=== PATIENT | female | born 1990 | race Caucasian/White ===

== ENCOUNTER 2017-02-11 04:20 | Observation (INO) | payer OTHER ==
[~2017-02-11] VITALS: Ht 177.8 cm; Wt 68.0 kg
[~2017-02-11 04:20] MED LIST: Z.0.NO CURRENT MEDS
[2017-02-11] MEDS ORDERED: DILA8TAB4 IV (05:27)
[2017-02-11 06:17] LABS: AUTOMATED NEUTROPHIL # 5.6 TH/MM3 (1.8-7.7); BASOPHIL % 0.2 % (0.0-2.0); EOSINOPHIL % 0.4 % (0.0-4.0); HEMO FLAGS DIFF FINAL; LYMPH % 24.5 % (9.0-44.0); MEAN CELL VOLUME 79.4 FL (80.0-100.0); MEAN CORPUSCULAR HEMOGLOBIN 27.6 PG (27.0-34.0); MEAN CORPUSCULAR HGB CONC 34.8 % (32.0-36.0); MONO % 7.4 % (0.0-8.0); NEUT % 67.5 % (16.0-70.0); PLATELET COUNT 231 TH/MM3 (150-450); RED BLOOD COUNT 3.91 MIL/MM3 (4.00-5.30); RED CELL DISTRIBUTION WIDTH 12.7 % (11.6-17.2); WHITE BLOOD COUNT 8.3 TH/MM3 (4.0-11.0)
[2017-02-11 06:39] LABS: ANION GAP 10 MEQ/L (5-15); AST (GOT) 54 U/L (15-37); BICARBONATE 23.1 MEQ/L (21.0-32.0); BLOOD UREA NITROGEN 8 MG/DL (7-18); CHLORIDE 102 MEQ/L (98-107); GLOMERULAR FILTRATION RATE 113 ML/MIN (>89); SODIUM (NA) 135 MEQ/L (136-145)
[2017-02-11 06:47] LABS: ALKALINE PHOSPHATASE 166 U/L (45-117); ALT (GPT) 92 U/L (10-53); TOTAL BILIRUBIN ADULT 0.3 MG/DL (0.2-1.0)
[2017-02-11 06:53] LABS: BACTERIA, URINE RARE /hpf; BLOOD, URINE NEG (NEG); COMMENT (UR) CULT NOT INDICATED; CULTURE IF INDICATED CULT NOT INDICATED; GLUCOSE,URINE NEG (NEG); HYALINE CAST, URINE 1 /lpf (RARE); KETONE, URINE NEG (NEG); MUCUS URINE MANY /lpf (OCC); NITRITE,URINE NEG (NEG); SQUAMOUS EPITHELIAL CELL URINE 2 /hpf (0-5); URINE COLOR DARK-YELLOW (YELLW/STRAW)
[2017-02-11 06:57] LABS: AMPHETAMINE, URINE NEG (NEG); BARBITURATES, URINE NEG (NEG)
[2017-02-11 06:58] LABS: RUBELLA IGG ANTIBODY 34.4 IU/mL (10.0-500.0); RUBELLA STATUS IMMUNE (IMMUNE)
[2017-02-11 07:00] LABS: COCAINE, URINE POS (NEG)
[2017-02-11] MEDS: LACTATED RINGER'S 1000 ML INJ 1,000 ML IV SCH (08:48)
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
[2017-02-11 09:41] LABS: RAPID PLASMA REAGIN SCREEN NON-REACTIVE (NON-REACTVE)
[2017-02-11 10:59] LABS: MRSA PCR NEGATIVE (NEGATIVE); STAPH AUREUS PCR NEGATIVE (NEGATIVE)
[2017-02-11] MEDS ORDERED: SODIUM CHLORIDE 0.9% FLUSH 10 ML FLUSH IV FLUSH PRN (13:00)
--- NOTE | 2017-02-11 16:37 | EC ---
Study Study Date:02/11/2017 STUDY CONCLUSIONS SUMMARY LEFT VENTRICLE: The cavity size was normal. Wall thickness was normal. Systolic function was normal. The estimated ejection fraction was in the range of 55% to 60%. Wall motion was normal; there were no regional wall motion abnormalities. If LV function is below 40, please consider prescribing an ACEI or ARB or document rationale for non-use. PROCEDURE DATA STUDY STATUS: Elective. Procedure: Transthoracic echocardiography. Image quality was good. Scanning was performed from the parasternal, apical, and subcostal acoustic windows. Study completion: The patient tolerated the procedure well. Transthoracic echocardiography. M-mode, complete 2D, complete spectral Doppler, and color Doppler. Patient status: Inpatient. CARDIAC ANATOMY LEFT VENTRICLE: The cavity size was normal. Wall thickness was normal. Systolic function was normal. The estimated ejection fraction was in the range of 55% to 60%. Wall motion was normal; there were no regional wall motion abnormalities. AORTIC VALVE: Trileaflet; normal thickness leaflets. Doppler: Transvalvular velocity was within the normal range. There was no stenosis. No regurgitation. AORTA: Aortic root: The aortic root was normal in size. MITRAL VALVE: Structurally normal valve. Doppler: Transvalvular velocity was within the normal range. There was no evidence for stenosis. Trace regurgitation. Peak gradient: 4mm Hg (D). LEFT ATRIUM: The atrium was normal in size. RIGHT VENTRICLE: The cavity size was normal. Wall thickness was normal. PULMONIC VALVE: Doppler: Transvalvular velocity was within the normal range. There was no evidence for stenosis. No regurgitation. TRICUSPID VALVE: Structurally normal valve. Doppler: Transvalvular velocity was within the normal range. No regurgitation. PULMONARY ARTERY: The main pulmonary artery was normal-sized. Systolic pressure was within the normal range. RIGHT ATRIUM: The atrium was normal in size. PERICARDIUM: There was no pericardial effusion. SYSTEMIC VEINS: Inferior vena cava: The vessel was normal in size. BASIC MEASUREMENTS ADULT Normal Left ventricle LV internal dimension, ED, chordal level, 46.4 mm 43-52 PLAX LV internal dimension, ES, chordal level, 34.3 mm 23-38 PLAX Fractional shortening, chordal level, PLAX *26 % >29 LV posterior wall thickness, ED 6.96 mm IVS/LVPW ratio, ED *1.31 <1.3 Ventricular septum Septal thickness, ED 9.11 mm Aortic valve Leaflet separation 24 mm 15-26 Left atrium Anterior-posterior dimension 37 mm Right ventricle RV internal dimension, ED, PLAX 19.5 mm 19-38 BASIC MEASUREMENTS ADULT Normal Aortic valve Leaflet separation 24 mm 15-26 Aorta Root diameter, ED 33 mm 20-37 DOPPLER MEASUREMENTS ADULT Normal Main pulmonary artery Pressure, S 23 mm Hg =30 Mitral valve Peak E-wave velocity 97.7 cm/s Peak A-wave velocity 70.6 cm/s Peak gradient, D 4 mm Hg Peak E/A ratio 1.4 Tricuspid valve Regurgitant peak velocity 166 cm/s Peak RV-RA gradient, S 11 mm Hg Maximal regurgitant velocity 166 cm/s Systemic veins Estimated CVP 5 mm Hg Right ventricle RV pressure, S 23 mm Hg <30 LEGEND: Mean values are shown as u=mean value. Asterisk (*) spangler values outside specified normal range. Prepared and signed by Mejia Rodríguez [id number]
[2017-02-11] MEDS ORDERED: GABAPENTIN 300 MG CAP PO ONE (20:00)
[2017-02-11] MEDS: SODIUM CHLORIDE 0.9% FLUSH 10 ML FLUSH IV FLUSH SCH (21:00)
[2017-02-12] MEDS: SODIUM CHLORIDE 0.9% FLUSH 10 ML FLUSH IV FLUSH SCH ×2 (08:43→21:00)
--- NOTE | 2017-02-12 08:57 | PD.CONS ---
HPI Chief Complaint 29 week IUP with abdominal pain and contractions active opioid addiction in withdrawal hep C preliminary HIV not negative hx MRSA abcess on arm in no care Date Seen: Feb 11, 2017 Travel History International Travel<30 Days: No Contact w/Intl Traveler<30Days: No Known Affected Area: No History of Present Illness HPI 26 yo swf G1 with EDC 04/30/17 by 8 week nisreen (which has beeen her only visit) arrived yesterday to [facility] with cramping, pain and symptoms of withdrawal. Has severe malaise, fatigue. Not eating well. GFM, no leaking, bleeding, discharge No fever, chills, does have nausea and chronic lower abdominal pain. COWS about 12-14. Recent drug of choice 8 mg dilaudid split and taken IV. Last was 3-4am on the . Complicated drug history detailed by Dr. Jefferson. States doesn't share needles. Has tricked. Use has been as high as 4-5 D's daily (40mg + $500 daily habit). Known hep C. Preliminary rapid HIV of concern--aware it is not negative but this is not yet processed by [facility] ) Initially undecided about subutex vs residential detox. Today would like to try subutex today. Echo reassuring. Initial MRSA swab negative. Allergies-Medications (Allergen,Severity, Reaction): Coded Allergies: Penicillin (Verified Allergy, Severe, 03/20/12) Home Meds Reported Medications Hydromorphone (Dilaudid)8 Mg Tab8 Mg IV TID PRN (Pain Management) Ref 0 02/11/17 Miscellaneous (No Current Meds) Misc 06/12/11 Review of Systems HENT: Headaches, Lightheadedness Gastrointestinal: Nausea, Abdominal Pain, Loss of Appetite Musculoskeletal: Weakness Psychiatric: Anxiety, Depression, Substance Abuse Physical Exam Narrative GENERAL: Well-nourished, well-developed patient. SKIN: Warm and dry. track spangler No active phleblitis or abcesses HEAD: Normocephalic and atraumatic. EYES: No scleral icterus. No injection or drainage. ENT: No nasal drainage noted. Mucous membranes pink. Airway patent. NECK: Supple, trachea midline. No JVD. CARDIOVASCULAR: Regular rate and rhythm without murmurs, gallops, or rubs. RESPIRATORY: Breath sounds equal bilaterally. No accessory muscle use. BREASTS: Bilateral exam showed no masses , no retractions, no nipple discharge. ABDOMEN/GI: Abdomen soft, non-tender, bowel sounds present, no rebound, no guarding Gravid to [-] weeks size Fundal Height: [-] GENITOURINARY: External Genitalia: intact and normal in appearance fundus equals dates FHT's: strip category 1 EXTREMITIES: No cyanosis or edema. BACK: Nontender without obvious deformity. No CVA tenderness. NEUROLOGICAL: Awake and alert. Motor and sensory grossly within normal limits. Five out of 5 muscle strength in all muscle groups. Normal speech. Data Data Orders Rhogam Only (02/11/17 09:08) ^ Rhogam (02/11/17 09:08) ^ Other Nursing Orders (02/11/17 12:58) Heart RT.Q4H (02/11/17 12:58) ^ Monitor (02/11/17 12:58) Sodium Chloride 0.9% Flush (Ns Flush) (02/11/17 21:00) Sodium Chloride 0.9% Flush (Ns Flush) (02/11/17 13:00) Case Management Consult (02/11/17 ) Hydroxyzine Pamoate (Vistaril) (02/11/17 13:00) Clonidine (Catapres) (02/11/17 13:00) Consult Infectious Disease (02/11/17 ) (Hub Use Only)Inp Phy Cons/Ref (02/11/17 ) Echo 2d Comp W/Dopp(Routine) (02/11/17 ) Hepatitis C Rna Genotype (02/12/17 06:00) Hepatitis C Rna Quantitative (02/12/17 06:00) Gabapentin (Neurontin) (02/11/17 20:00) Labs Laboratory Tests Test 02/11/17 11:20 Blood Bank Comment MDM Narrative Course / MDM course in house per residents I will start subutex will follow on outpatient -- needs consents and contracts need family buy in Need ID consult before discharge will likely need antivirals started Leticia Maldonado MD Feb 12, 2017 08:57
[2017-02-12] MEDS ORDERED: BUPRENORPHINE HCL 8 MG SUBLINGUAL TAB SL ONE (09:00)
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
[2017-02-12 15:33] LABS: CHLAMYDIA PCR NOT DETECTED (NOT DETECT); NEISSERIA PCR NOT DETECTED (NOT DETECT)
[2017-02-12] MEDS ORDERED: LORazepam 1 MG TAB PO PRN (17:00)
[2017-02-12] MEDS ORDERED: BUPRENORPHINE HCL 8 MG SUBLINGUAL TAB SL PRN (17:00)
[2017-02-13 00:25] LABS: HIV 1 AB DIFFERENTIATION Positive (Negative); HIV 1/2 AG AND AB SCREEN Reactive (Negative); HIV 2 AB DIFFERENTIATION Negative (Negative)
--- NOTE | 2017-02-13 08:43 | PD.OB.ANTE ---
Subjective Diagnosis: (1) IV drug abuse complicating (2) Abdominal pain affecting (3) Malaise and fatigue (4) Hepatitis C (5) Encounter for screening for human immunodeficiency virus [HIV] (6) Dilaudid use disorder, severe, dependence (7) Cocaine abuse affecting Interval History Has done well with 4 mg subutex discussed HIV results and she is in denial no leaking, bleeding, GFM feeling nauseous with her new diagnosis--wants repeat blood drawn to confirm ( doing PCR and viral load) will get ID consult/ Objective Lab & Micro Results Test 02/12/17 12:39 Chlamydia trachomatis DNA NOT DETECTED (PCR) Neisseria gonorrhoeae DNA NOT DETECTED (PCR) Physical Exam GENERAL: Well-nourished, well-developed patient. CARDIOVASCULAR: Regular rate and rhythm without murmurs, gallops, or rubs. RESPIRATORY: Breath sounds equal bilaterally. No accessory muscle use. ABDOMEN/GI: Abdomen soft, non-tender. Fundus: [-] GENITOURINARY: External Genitalia: intact and normal in appearance Cervix: [-] Dilatation: [-] Effacement: [-] Station: [-] Presentation: [-] Membranes: [-] Uterine Contractions: [-] FHT's: Category: [-] Baseline: [-] Reactive: [-] Variability: [-] Decels: [-] EXTREMITIES: No cyanosis or edema, non-tender, without signs of DVT. Assessment and Plan Problem List: (1) IV drug abuse complicating Status: Acute (2) Abdominal pain affecting Status: Acute (3) Malaise and fatigue Status: Acute (4) Hepatitis C Status: Acute (5) Encounter for screening for human immunodeficiency virus [HIV] Status: Acute (6) Dilaudid use disorder, severe, dependence Status: Acute (7) Cocaine abuse affecting Status: Acute Assessment & Plan: IUP at 29 1/7 weeks (PATT 04/29/2017) -Continue intermittent monitoring -Continue continuous tocometry - labs ordered -Will obtain GC/Chlamydia today -US 02/11: Cervical length 3.4. Amniotic fluid index WNL. Biometries consistent with PATT. BPP 06/01 Hepatitis C Impression: Antibody reactive; known disease Quantitative and genotype testing pending Screen for HIV positive Impression: Confirmatory testing pending. Patient has high degree of pretest probability due to IV drug use and promiscuous sexual activity -ID consultation pending for recommendations IV drug use Impression: Dependence on IV Dilaudid in association with occasional cocaine and marijuana use. This time, patient is currently weighing treatment options while having discussions with Dr. Maldonado and her mother. -Will give trial of Subutex 4 mg with close monitoring subsequently in order to help patient weigh options of risk of relapse on home Subutex (q2wk appointments with Dr. Maldonado) versus project warm stay Leticia Maldonado MD Feb 13, 2017 08:43
--- NOTE | 2017-02-13 08:52 | PD.OB.ANTE ---
Subjective Diagnosis: (1) IV drug abuse complicating (2) Abdominal pain affecting (3) Malaise and fatigue (4) Hepatitis C (5) Encounter for screening for human immunodeficiency virus [HIV] (6) Dilaudid use disorder, severe, dependence (7) Cocaine abuse affecting Interval History No acute events. Was feeling well until finding out that HIV testing was positive however she does not believe it and is demanding further confirmation. She otherwise has no acute events. Antepartum ROS: Reports: New complaints (Santa Ford MD R2) Objective Lab & Micro Results Test 02/12/17 12:39 Chlamydia trachomatis DNA NOT DETECTED (PCR) Neisseria gonorrhoeae DNA NOT DETECTED (PCR) Physical Exam GENERAL: Well-nourished, well-developed patient. CARDIOVASCULAR: Regular rate and rhythm without murmurs, gallops, or rubs. RESPIRATORY: Breath sounds equal bilaterally. No accessory muscle use. ABDOMEN/GI: Abdomen soft, non-tender. Fundus:30 GENITOURINARY: FHT's: Category: appropriate for gestational age. Baseline: 130 Reactive: accels present Variability: moderate Decels: none EXTREMITIES: No cyanosis or edema, non-tender, without signs of DVT. (Santa Crespo MD R2) Assessment and Plan Problem List: (1) IV drug abuse complicating Status: Acute (2) Abdominal pain affecting Status: Acute (3) Malaise and fatigue Status: Acute (4) Hepatitis C Status: Acute (5) Encounter for screening for human immunodeficiency virus [HIV] Status: Acute (6) Dilaudid use disorder, severe, dependence Status: Acute (7) Cocaine abuse affecting Status: Acute Assessment & Plan: IUP at 29 weeks (PATT 04/29/2017) -Continue intermittent monitoring -Continue continuous tocometry - labs: Hep B, RPR negative. Immune to rubella -GC/Chlamydia negative -US 02/11: Cervical length 3.4. Amniotic fluid index WNL. Biometries consistent with PATT. BPP 06/01 Hepatitis C Impression: Antibody reactive; known disease Quantitative and genotype testing pending Screen for HIV positive Impression: Confirmatory testing positive. Patient has high degree of pretest probability due to IV drug use and promiscuous sexual activity -ID consultation reordered -will obtain viral load -Ativan for anxiety for new diagnosis -provided diagnosis counseling IV drug use Impression: Dependence on IV Dilaudid in association with occasional cocaine and marijuana use. This time, patient is currently weighing treatment options while having discussions with Dr. Maldonado and her mother. -Continue trial of Subutex 4 mg with close monitoring subsequently in order to help patient weigh options of risk of relapse on home Subutex (q2wk appointments with Dr. Maldonado) versus project warm stay sdw Dr. Palomares Dr. cShmidt (Santa Ford MD R2) Collaborating MD Comments Dr Maldonado is attending on this case. (Latanya Schmidt MD) Santa Ford MD R2 Feb 13, 2017 08:52 Latanya Schmidt MD Feb 15, 2017 20:51
[2017-02-13] MEDS: NICOTINE 21 MG/24 HR PATCH T-DERMAL SCH ×2 (08:53→09:00)
[2017-02-13] MEDS: BUPRENORPHINE HCL 8 MG SUBLINGUAL TAB SL SCH ×3 (09:00→20:53)
[2017-02-13] MEDS: SODIUM CHLORIDE 0.9% FLUSH 10 ML FLUSH IV FLUSH SCH ×2 (09:00→21:00)
--- NOTE | 2017-02-13 10:23 | HHI.FPPN ---
Addendum to progress note ADDENDUM Reason for addendum: Additonal documentation Additional information Patient reported feeling short of breath this morning at ~0930; she believed she was having a panic attack. O: VS BP 124/73, HR 95, RR 18, T98.5 Gen: Patient appears anxious Respirations: No visible distress CV: Grossly normal perfusion A/P: HIV confirmatory screening positive -ID consulted -Lymphocyte quant pending -HIV genotype pending -Will add resistance testing to guide antibiotic selection -Will add TB testing -Will add Lipid profile Jason Jefferson MD R2 Feb 13, 2017 10:23
[2017-02-13 12:37] LABS: HDL CHOLESTEROL 23.3 MG/DL (40.0-60.0)
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
[2017-02-13] MEDS: cloNIDine HCL 0.1 MG TAB PO PRN ×2 (15:35→22:37)
[2017-02-13] MEDS: REMOVE OLD NICODERM (NICOTINE) PATCH T-DERMAL SCH (21:00)
[2017-02-14] MEDS: cloNIDine HCL 0.1 MG TAB PO PRN ×2 (06:19→12:23)
[2017-02-14] MEDS: NICOTINE 21 MG/24 HR PATCH T-DERMAL SCH (09:00)
[2017-02-14] MEDS: SODIUM CHLORIDE 0.9% FLUSH 10 ML FLUSH IV FLUSH SCH (09:00)
[2017-02-14] MEDS: BUPRENORPHINE HCL 8 MG SUBLINGUAL TAB SL SCH ×3 (09:47→21:11)
--- NOTE | 2017-02-14 12:28 | HHI.PR ---
Subjective Remarks Doing well Good movement. Feeling much better today Objective Result Diagram: 02/11/17 0550 02/11/17 0550 Other Results Chest is clear CV RRR Abd gravid and NT Ext No CCE Assessment and Plan Assessment and Plan IUP at 39/3 Drug abuse on subutex will space out schedule to 9A, 3P, 9P Possible HIV need to check viral load, will follow up with ID. I had a long discussion regarding HIV and vertical transmission and group home outcome. Anemia will start Fe. Say Abel MD Feb 14, 2017 12:28
[2017-02-14] MEDS: LACTATED RINGER'S 1000 ML INJ 1,000 ML IV SCH (12:30)
[2017-02-14 17:50] LABS: HCV RNA PCR IU/ML 9370000 IU/mL (()); HCV RNA PCR LOGIU/ML 6.97 (())
[2017-02-15] MEDS: cloNIDine HCL 0.1 MG TAB PO PRN ×2 (00:03→08:41)
[2017-02-15] MEDS: DOCUSATE SODIUM 100 MG CAP PO SCH ×3 (00:03→21:00)
[2017-02-15] MEDS: FERROUS SULFATE 325 MG (65 MG ELEMENTAL IRON) TAB PO SCH (08:41)
[2017-02-15] MEDS: BUPRENORPHINE HCL 8 MG SUBLINGUAL TAB SL SCH ×3 (08:41→21:00)
[2017-02-15] MEDS: NICOTINE 21 MG/24 HR PATCH T-DERMAL SCH (08:42)
[2017-02-15 08:43] LABS: PHENCYCLIDINE URINE NEG (NEG)
[2017-02-15 08:44] LABS: BATH SALTS (MDPV) UR NEG (NEG); ECSTASY (MDMA) UR NEG (NEG); GABAPENTIN UR NEG (NEG); HEROIN (6-ACETYLMORPHINE) UR NEG (NEG); K2 SPICE UR NEG (NEG); OBMETHADONE UR NEG (NEG); OXYCODONE (PERCODAN) NEG (NEG)
[2017-02-15 08:45] LABS: HYDROMORPHONE U POS (NEG)
[2017-02-15] MEDS: SODIUM CHLORIDE 0.9% FLUSH 10 ML FLUSH IV FLUSH SCH ×2 (09:00→21:00)
--- NOTE | 2017-02-15 09:54 | PD.OB.ANTE ---
Subjective Diagnosis: (1) IV drug abuse complicating (2) Abdominal pain affecting (3) Malaise and fatigue (4) Hepatitis C (5) Encounter for screening for human immunodeficiency virus [HIV] (6) Dilaudid use disorder, severe, dependence (7) Cocaine abuse affecting Interval History Slept quietly last night Doing well on 4 mg subutex every 8 hours. Awaiting viral RNA and resistence pattern. Over 9 million copies hep C. surveilance reassurace, Objective Physical Exam GENERAL: Well-nourished, well-developed patient. CARDIOVASCULAR: Regular rate and rhythm without murmurs, gallops, or rubs. RESPIRATORY: Breath sounds equal bilaterally. No accessory muscle use. ABDOMEN/GI: Abdomen soft, non-tender. Fundus: [-] GENITOURINARY: External Genitalia: intact and normal in appearance Cervix: [-] Dilatation: [-] Effacement: [-] Station: [-] Presentation: [-] Membranes: [-] Uterine Contractions: [-] FHT's: Category: [-] Baseline: [-] Reactive: [-] Variability: [-] Decels: [-] EXTREMITIES: No cyanosis or edema, non-tender, without signs of DVT. Assessment and Plan Problem List: (1) IV drug abuse complicating Status: Acute (2) Abdominal pain affecting Status: Acute (3) Malaise and fatigue Status: Acute (4) Hepatitis C Status: Acute (5) Encounter for screening for human immunodeficiency virus [HIV] Status: Acute (6) Dilaudid use disorder, severe, dependence Status: Acute (7) Cocaine abuse affecting Status: Acute Assessment & Plan: IUP at 29 weeks (PATT 04/29/2017) -Continue intermittent monitoring -Continue continuous tocometry - labs: Hep B, RPR negative. Immune to rubella -GC/Chlamydia negative -US 02/11: Cervical length 3.4. Amniotic fluid index WNL. Biometries consistent with PATT. BPP 06/01 Hepatitis C Impression: Antibody reactive; known disease Quantitative and genotype testing pending Screen for HIV positive Impression: Confirmatory testing positive. Patient has high degree of pretest probability due to IV drug use and promiscuous sexual activity -ID consultation reordered -will obtain viral load -Ativan for anxiety for new diagnosis -provided diagnosis counseling IV drug use Impression: Dependence on IV Dilaudid in association with occasional cocaine and marijuana use. This time, patient is currently weighing treatment options while having discussions with Dr. Maldonado and her mother. -Continue trial of Subutex 4 mg with close monitoring subsequently in order to help patient weigh options of risk of relapse on home Subutex (q2wk appointments with Dr. Maldonado) versus project warm stay [facility] Dr. Marielle Maldonado,Leticia Bourgeois MD Feb 15, 2017 09:54
--- NOTE | 2017-02-15 13:37 | PD.OB.ANTE ---
Subjective Diagnosis: (1) IV drug abuse complicating Diagnosis: Principal (2) Abdominal pain affecting Diagnosis: Principal (3) Malaise and fatigue Diagnosis: Principal (4) Hepatitis C Diagnosis: Principal (5) Encounter for screening for human immunodeficiency virus [HIV] Diagnosis: Principal (6) Dilaudid use disorder, severe, dependence Diagnosis: Principal (7) Cocaine abuse affecting Interval History Ms. Fleming was afebrile with stable vital signs overnight; patient does not need to have new complaints at this time but is anxious regarding confirmatory HIV results. Objective Vital Signs BP 111/59 RR 18 T 97.7 HR 63 Physical Exam GENERAL: Well-nourished, well-developed patient. CARDIOVASCULAR: Normal perfusion, normal rate. RESPIRATORY: Normal rate, no distress ABDOMEN/GI: Abdomen soft, non-tender. Gravid EXTREMITIES: Without signs of DVT. GENITOURINARY: (Exam 02/12/2017) External Genitalia: intact and normal in appearance Cervix: Normal in appearance without visible lesion Uterine Contractions: None FHT's: (intermittent) Category: 1 Baseline: 130 Reactive: Y Variability: Mod Decels: None Assessment and Plan Problem List: (1) IV drug abuse complicating Status: Acute (2) Abdominal pain affecting Status: Acute (3) Malaise and fatigue Status: Acute (4) Hepatitis C Status: Acute (5) Encounter for screening for human immunodeficiency virus [HIV] Status: Acute (6) Dilaudid use disorder, severe, dependence Status: Acute (7) Cocaine abuse affecting Status: Acute Assessment & Plan: IUP at 29 4/7 weeks (PATT 04/29/2017) -Continue intermittent monitoring -Continue continuous tocometry - labs: Hep B, RPR negative. Immune to rubella -GC/Chlamydia negative -US 02/11: Cervical length 3.4. Amniotic fluid index WNL. Biometries consistent with PATT. BPP 06/01 Hepatitis C Impression: Antibody reactive; known disease. Genotype 1a. HCV RNA 9.37 million. HCV RNA PCR 6.97 IU. LFT's- AST 54, ALT 92, ALK P 166. ID consulted Screen for HIV positive Impression: Confirmatory testing positive for HIV-1. HIV-2 negative. Patient has high degree of pretest probability due to IV drug use and promiscuous sexual activity -ID consultation reordered -Viral load testing pending IV drug use Impression: Dependence on IV Dilaudid in association with occasional cocaine and marijuana use. This time, patient is currently weighing treatment options while having discussions with Dr. Maldonado and her mother. -Continue trial of Subutex 4 mg with close monitoring subsequently in order to help patient weigh options of risk of relapse on home Subutex (q2wk appointments with Dr. Maldonado) versus project warm stay [facility] [place] -provided diagnosis counseling Social Impression: Patient evaluated by case management; will need PCP for ID referral. Patient provided with referral info per "[facility]" [facility] Jason Jefferson MD R2 Feb 15, 2017 13:37
[2017-02-15 13:52] LABS: HEPATITIS C RNA GENOTYPE 1a (())
[2017-02-15] MEDS: REMOVE OLD NICODERM (NICOTINE) PATCH T-DERMAL SCH (15:08)
--- NOTE | 2017-02-15 17:55 | PD.OB.ANTE ---
Subjective Diagnosis: (1) IV drug abuse complicating (2) Abdominal pain affecting (3) Malaise and fatigue (4) Hepatitis C (5) Encounter for screening for human immunodeficiency virus [HIV] (6) Dilaudid use disorder, severe, dependence (7) Cocaine abuse affecting Interval History in good spirits now that she is not dope sick. discussion about HIV, agrees to start emperic HAART and if PCR negative can stop it then Apparently needs a PCP who is not an OBGYN to facilitate referral on outpatient basis. Dr. Jefferson is on it. eval in am. Objective Physical Exam GENERAL: Well-nourished, well-developed patient. CARDIOVASCULAR: Regular rate and rhythm without murmurs, gallops, or rubs. RESPIRATORY: Breath sounds equal bilaterally. No accessory muscle use. ABDOMEN/GI: Abdomen soft, non-tender. Fundus: [-] GENITOURINARY: External Genitalia: intact and normal in appearance Cervix: [-] Dilatation: [-] Effacement: [-] Station: [-] Presentation: [-] Membranes: [-] Uterine Contractions: [-] FHT's: Category: [-] Baseline: [-] Reactive: [-] Variability: [-] Decels: [-] EXTREMITIES: No cyanosis or edema, non-tender, without signs of DVT. Assessment and Plan Problem List: (1) IV drug abuse complicating Status: Acute (2) Abdominal pain affecting Status: Acute (3) Malaise and fatigue Status: Acute (4) Hepatitis C Status: Acute (5) Encounter for screening for human immunodeficiency virus [HIV] Status: Acute (6) Dilaudid use disorder, severe, dependence Status: Acute (7) Cocaine abuse affecting Status: Acute Assessment & Plan: IUP at 29 4/7 weeks (PATT 04/29/2017) -Continue intermittent monitoring -Continue continuous tocometry - labs: Hep B, RPR negative. Immune to rubella -GC/Chlamydia negative -US 02/11: Cervical length 3.4. Amniotic fluid index WNL. Biometries consistent with PATT. BPP 06/01 Hepatitis C Impression: Antibody reactive; known disease. Genotype 1a. HCV RNA 9.37 million. HCV RNA PCR 6.97 IU. LFT's- AST 54, ALT 92, ALK P 166. ID consulted Screen for HIV positive Impression: Confirmatory testing positive for HIV-1. HIV-2 negative. Patient has high degree of pretest probability due to IV drug use and promiscuous sexual activity -ID consultation reordered -Viral load testing pending IV drug use Impression: Dependence on IV Dilaudid in association with occasional cocaine and marijuana use. This time, patient is currently weighing treatment options while having discussions with Dr. Maldonado and her mother. -Continue trial of Subutex 4 mg with close monitoring subsequently in order to help patient weigh options of risk of relapse on home Subutex (q2wk appointments with Dr. Maldonado) versus project warm stay Anxiety -Ativan for anxiety -provided diagnosis counseling Social Impression: Patient evaluated by case management; will need PCP for ID referral. Patient provided with referral info per "[facility]" Program Leticia Maldonado MD Feb 15, 2017 17:55
[2017-02-15] MEDS ORDERED: BUPRENORPHINE HCL 8 MG SUBLINGUAL TAB SL PRN (18:00)
--- NOTE | 2017-02-16 07:57 | PD.OB.ANTE ---
Subjective Diagnosis: (1) IV drug abuse complicating (2) Abdominal pain affecting (3) Malaise and fatigue (4) Hepatitis C (5) Encounter for screening for human immunodeficiency virus [HIV] (6) Dilaudid use disorder, severe, dependence (7) Cocaine abuse affecting Interval History 02/28 primgravida opioid maintenance on 12 mg subutex per 24 hours hep C + (genotype 1a . one million copies) HIV 1 + PCR and resistance patterns "pending" :( no obvious staph or other infections no prior care AGA gee male would like echo and level 2 and if preferences on HAART in let us known. Objective Physical Exam GENERAL: Well-nourished, well-developed patient. CARDIOVASCULAR: Regular rate and rhythm without murmurs, gallops, or rubs. RESPIRATORY: Breath sounds equal bilaterally. No accessory muscle use. ABDOMEN/GI: Abdomen soft, non-tender. Fundus: [-] GENITOURINARY: External Genitalia: intact and normal in appearance Cervix: [-] Dilatation: [-] Effacement: [-] Station: [-] Presentation: [-] Membranes: [-] Uterine Contractions: [-] FHT's: Category: [-] Baseline: [-] Reactive: [-] Variability: [-] Decels: [-] EXTREMITIES: No cyanosis or edema, non-tender, without signs of DVT. Assessment and Plan Problem List: (1) IV drug abuse complicating Status: Acute (2) Abdominal pain affecting Status: Acute (3) Malaise and fatigue Status: Acute (4) Hepatitis C Status: Acute (5) Encounter for screening for human immunodeficiency virus [HIV] Status: Acute (6) Dilaudid use disorder, severe, dependence Status: Acute (7) Cocaine abuse affecting Status: Acute Assessment & Plan: IUP at 29 01/29 weeks (PATT 04/29/2017) -Continue intermittent monitoring -Continue continuous tocometry - labs: Hep B, RPR negative. Immune to rubella -GC/Chlamydia negative -US 02/11: Cervical length 3.4. Amniotic fluid index WNL. Biometries consistent with PATT. BPP 06/01 Hepatitis C Impression: Antibody reactive; known disease. Genotype 1a. HCV RNA 9.37 million. HCV RNA PCR 6.97 IU. LFT's- AST 54, ALT 92, ALK P 166. ID consulted Screen for HIV positive Impression: Confirmatory testing positive for HIV-1. HIV-2 negative. Patient has high degree of pretest probability due to IV drug use and promiscuous sexual activity -ID consultation reordered -Viral load testing pending IV drug use Impression: Dependence on IV Dilaudid in association with occasional cocaine and marijuana use. This time, patient is currently weighing treatment options while having discussions with Dr. Maldonado and her mother. -Continue trial of Subutex 4 mg with close monitoring subsequently in order to help patient weigh options of risk of relapse on home Subutex (q2wk appointments with Dr. Maldonado) versus project warm stay Anxiety -Ativan for anxiety -provided diagnosis counseling Social Impression: Patient evaluated by case management; will need PCP for ID referral. Patient provided with referral info per "[facility]" [facility] Leticia Maldonado MD Feb 16, 2017 07:57
[2017-02-16] MEDS: SODIUM CHLORIDE 0.9% FLUSH 10 ML FLUSH IV FLUSH SCH ×2 (09:00→20:30)
[2017-02-16] MEDS: DOCUSATE SODIUM 100 MG CAP PO SCH ×3 (09:00→21:00)
[2017-02-16] MEDS: NICOTINE 21 MG/24 HR PATCH T-DERMAL SCH (09:00)
[2017-02-16] MEDS: BUPRENORPHINE HCL 8 MG SUBLINGUAL TAB SL SCH ×3 (09:29→20:54)
[2017-02-16] MEDS: RALTEGRAVIR 400 MG TAB PO SCH ×2 (13:53→23:30)
[2017-02-16] MEDS: FERROUS SULFATE 325 MG (65 MG ELEMENTAL IRON) TAB PO SCH (13:53)
[2017-02-16] MEDS: cloNIDine HCL 0.1 MG TAB PO PRN (13:53)
[2017-02-16] MEDS: EMTRICITABINE/TENOFOVIR 200 MG/300 MG TAB PO SCH (13:53)
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
[2017-02-17] MEDS: cloNIDine HCL 0.1 MG TAB PO PRN ×2 (01:50→21:37)
[2017-02-17 03:50] LABS: CD4/CD8 RATIO 0.4 (0.86-5.00)
--- NOTE | 2017-02-17 08:10 | PD.OB.ANTE ---
Subjective Diagnosis: (1) IV drug abuse complicating (2) Abdominal pain affecting (3) Malaise and fatigue (4) Hepatitis C (5) Encounter for screening for human immunodeficiency virus [HIV] (6) Dilaudid use disorder, severe, dependence (7) Cocaine abuse affecting Interval History Doing well no issues with baby--rare UCs and GFM now taking HAART emperically HIV parameters still pending has tender area where tracks on right forearm Objective Lab & Micro Results Date/Time Procedure Status Source Growth 02/16/17 17:45 MRSA Surveillance Culture Received Skin Scrapings Pending Physical Exam GENERAL: Well-nourished, well-developed patient. CARDIOVASCULAR: Regular rate and rhythm without murmurs, gallops, or rubs. RESPIRATORY: Breath sounds equal bilaterally. No accessory muscle use. ABDOMEN/GI: Abdomen soft, non-tender. EXTREMITIES: No cyanosis or edema, non-tender, without signs of DVT. Assessment and Plan Problem List: (1) IV drug abuse complicating Status: Acute (2) Abdominal pain affecting Status: Acute (3) Malaise and fatigue Status: Acute (4) Hepatitis C Status: Acute (5) Encounter for screening for human immunodeficiency virus [HIV] Status: Acute (6) Dilaudid use disorder, severe, dependence Status: Acute (7) Cocaine abuse affecting Status: Acute Assessment & Plan: IUP at 29 4/7 weeks (PATT 04/29/2017) -Continue intermittent monitoring -Continue continuous tocometry - labs: Hep B, RPR negative. Immune to rubella -GC/Chlamydia negative -US 02/11: Cervical length 3.4. Amniotic fluid index WNL. Biometries consistent with PATT. BPP 06/01 Hepatitis C Impression: Antibody reactive; known disease. Genotype 1a. HCV RNA 9.37 million. HCV RNA PCR 6.97 IU. LFT's- AST 54, ALT 92, ALK P 166. ID consulted Screen for HIV positive Impression: Confirmatory testing positive for HIV-1. HIV-2 negative. Patient has high degree of pretest probability due to IV drug use and promiscuous sexual activity -ID consultation reordered -Viral load testing pending IV drug use Impression: Dependence on IV Dilaudid in association with occasional cocaine and marijuana use. This time, patient is currently weighing treatment options while having discussions with Dr. Maldonado and her mother. -Continue trial of Subutex 4 mg with close monitoring subsequently in order to help patient weigh options of risk of relapse on home Subutex (q2wk appointments with Dr. Maldonado) versus project warm stay Anxiety -Ativan for anxiety -provided diagnosis counseling Social Impression: Patient evaluated by case management; will need PCP for ID referral. Patient provided with referral info per "[facility]" Program Assessment and Plan Stable at 29+ wee4ks HIV work up still in progress Hep C on emperic HAART wrap around services coming in place hopeful to have home with adequate follow up social care by Wednesday I will see for care Say Abel MD Feb 17, 2017 08:10
[2017-02-17] MEDS: NICOTINE 21 MG/24 HR PATCH T-DERMAL SCH (09:00)
[2017-02-17] MEDS: SODIUM CHLORIDE 0.9% FLUSH 10 ML FLUSH IV FLUSH SCH (09:00)
[2017-02-17] MEDS: DOCUSATE SODIUM 100 MG CAP PO SCH ×2 (09:00→21:00)
[2017-02-17] MEDS: FERROUS SULFATE 325 MG (65 MG ELEMENTAL IRON) TAB PO SCH (09:08)
[2017-02-17] MEDS: EMTRICITABINE/TENOFOVIR 200 MG/300 MG TAB PO SCH (09:08)
[2017-02-17] MEDS: BUPRENORPHINE HCL 8 MG SUBLINGUAL TAB SL SCH ×3 (09:08→21:36)
[2017-02-17] MEDS: RALTEGRAVIR 400 MG TAB PO SCH ×2 (09:08→21:37)
[2017-02-17 15:41] LABS: MITOGEN MINUS NIL RESULT 8.18 IU/mL (()); NIL RESULT 0.06 IU/mL (()); QUANTIFERON TB GOLD RESULT Negative (Negative)
--- NOTE | 2017-02-17 19:10 | PD.OB.ANTE ---
Subjective Diagnosis: (1) IV drug abuse complicating Diagnosis: Principal (2) Abdominal pain affecting Diagnosis: Principal (3) Malaise and fatigue Diagnosis: Principal (4) Hepatitis C Diagnosis: Principal (5) Encounter for screening for human immunodeficiency virus [HIV] Diagnosis: Principal (6) Dilaudid use disorder, severe, dependence Diagnosis: Principal (7) Cocaine abuse affecting Diagnosis: Principal Interval History Afebrile with stable vital signs overnight. Patient does not report new complaints at this time. Objective Lab & Micro Results Date/Time Procedure Status Source Growth 02/16/17 17:45 MRSA Surveillance Culture - Preliminary Resulted Skin Scrapings RESULTS PENDING Physical Exam GENERAL: Well-nourished, well-developed patient. CARDIOVASCULAR: Normal perfusion, normal rate. RESPIRATORY: Normal rate, no distress ABDOMEN/GI: Abdomen soft, non-tender. Gravid EXTREMITIES: Without signs of DVT. GENITOURINARY: (Exam 02/12/2017) External Genitalia: intact and normal in appearance Cervix: Normal in appearance without visible lesion Uterine Contractions: None FHT's: (intermittent- last at 10 am 02/17) Category: 1 Baseline: 130 Reactive: Y Variability: Mod Decels: None Assessment and Plan Problem List: (1) IV drug abuse complicating Status: Acute (2) Abdominal pain affecting Status: Acute (3) Malaise and fatigue Status: Acute (4) Hepatitis C Status: Acute (5) Encounter for screening for human immunodeficiency virus [HIV] Status: Acute (6) Dilaudid use disorder, severe, dependence Status: Acute (7) Cocaine abuse affecting Status: Acute Assessment & Plan: IUP at 29 6/7 weeks (PATT 04/29/2017) -Continue intermittent monitoring -Continue continuous tocometry - labs: Hep B, RPR negative. Immune to rubella -GC/Chlamydia negative -US 02/11: Cervical length 3.4. Amniotic fluid index WNL. Biometries consistent with PATT. BPP 06/01 Hepatitis C Impression: Antibody reactive; known disease. Genotype 1a. HCV RNA 9.37 million. HCV RNA PCR 6.97 IU. LFT's- AST 54, ALT 92, ALK P 166. ID consulted Screen for HIV positive Impression: Confirmatory testing positive for HIV-1. HIV-2 negative. ID consulted Lymphocyte testing: -CD4 527 -CD8 1319 (H) -Absolute Lymphocytes 2131 -Patient started on empiric Truvada and Raltegravir -Viral load testing pending IV drug use Impression: Dependence on IV Dilaudid in association with occasional cocaine and marijuana use. This time, patient is currently weighing treatment options ( close monitoring subsequently in order to help patient weigh options of risk of relapse on home Subutex (q2wk appointments with Dr. Maldonado) versus project warm stay) while having discussions with Dr. Maldonado and her mother. -Continue trial of Subutex 4 mg TID with additional PRN 4mg Anxiety -Ativan for anxiety -provided diagnosis counseling Social Impression: Patient evaluated by case management/social programs and given resources -Patient will need PCP for ID referral Jason Jefferson MD R2 Feb 17, 2017 19:10
[2017-02-17] MEDS: REMOVE OLD NICODERM (NICOTINE) PATCH T-DERMAL SCH (21:00)
[2017-02-17 23:53] LABS: HIV RNA LOG COPIES 3.64 (())
[2017-02-18] MEDS: cloNIDine HCL 0.1 MG TAB PO PRN (04:40)
[2017-02-18] MEDS: DOCUSATE SODIUM 100 MG CAP PO SCH ×2 (09:00→21:00)
[2017-02-18] MEDS: BUPRENORPHINE HCL 8 MG SUBLINGUAL TAB SL SCH ×3 (09:00→21:14)
[2017-02-18] MEDS: NICOTINE 21 MG/24 HR PATCH T-DERMAL SCH (09:27)
[2017-02-18] MEDS: EMTRICITABINE/TENOFOVIR 200 MG/300 MG TAB PO SCH (09:27)
[2017-02-18] MEDS: FERROUS SULFATE 325 MG (65 MG ELEMENTAL IRON) TAB PO SCH (09:28)
[2017-02-18] MEDS: SERTRALINE HCL 100 MG TAB PO SCH (09:28)
[2017-02-18] MEDS: RALTEGRAVIR 400 MG TAB PO SCH ×2 (09:28→21:14)
--- NOTE | 2017-02-18 10:28 | PD.OB.ANTE ---
Subjective Diagnosis: (1) IV drug abuse complicating (2) Abdominal pain affecting (3) Malaise and fatigue (4) Hepatitis C (5) Encounter for screening for human immunodeficiency virus [HIV] (6) Dilaudid use disorder, severe, dependence (7) Cocaine abuse affecting Interval History 26 yo G1 at 30 0/7 weeks admitted one week ago for symptoms of pre term labor and opioid withdrawal. Had no prior care. Serology revealed HIV 1, Hep C 1a. She had been using dilaudid up to 40 mg daily at one point but had reduced to about 24 mg daily in divided IV doses. Has done well with subutext 4 mg sublingual TID. Initially she was in denial about new HIV diagnosis. Now accepts this and is understandably distrought. [facility] and [facility] services have been mobilized. She is on her retrovirals which may be modified pending characterization profile. She is depressed. She has hx of MRSA but negative nasal swab. She has some healing phleblitis. surveillance reasuring. She is ready for discharge once we have a guaranteed source of her HAART between discharge and first visit. I will prescribe her subutex and see her weekly for care. Antepartum ROS: Reports: movement normal Objective Lab & Micro Results Date/Time Procedure Status Source Growth 02/16/17 17:45 MRSA Surveillance Culture - Final Complete Skin Scrapings NO MRSA ISOLATED Physical Exam GENERAL: Well-nourished, well-developed patient. CARDIOVASCULAR: Regular rate and rhythm without murmurs, gallops, or rubs. RESPIRATORY: Breath sounds equal bilaterally. No accessory muscle use. ABDOMEN/GI: Abdomen soft, non-tender. scared veins and tracks Some phleblitis localized EXTREMITIES: No cyanosis or edema, non-tender, without signs of DVT. Assessment and Plan Problem List: (1) IV drug abuse complicating Status: Acute (2) Abdominal pain affecting Status: Acute (3) Malaise and fatigue Status: Acute (4) Hepatitis C Status: Acute (5) Encounter for screening for human immunodeficiency virus [HIV] Status: Acute (6) Dilaudid use disorder, severe, dependence Status: Acute (7) Cocaine abuse affecting Status: Acute Assessment & Plan: IUP at 30 and 0/7 opioid maintenance now on subutex HIV + on emperic HAART pending resistance profile Patient started on empiric Truvada and Raltegravir Anxiety and Depression PTSD starting on zoloft 100 mg wrap around services being created discharge ONLY WHEN GUARANTEED TO HAVE HER SUBUTEX AND RETROVIRALS FILLED UNTIL NEXT OUTPATIENT APPOINTMENT Leticia Maldonado MD Feb 18, 2017 10:28
[2017-02-18] MEDS ORDERED: HYDR50CA PO (10:36)
[2017-02-18] MEDS ORDERED: EMTR1TAB PO (10:36)
[2017-02-18] MEDS ORDERED: ZOLO100T PO (10:36)
[2017-02-18] MEDS ORDERED: RALT400 PO (10:36)
[2017-02-18] MEDS ORDERED: CLON.1 PO (10:36)
[2017-02-18] MEDS ORDERED: BUPR8SUB SL (10:36)
[2017-02-18] MEDS ORDERED: NICO21DI2 T-DERMAL (10:36)
--- NOTE | 2017-02-18 10:36 | HHI.DCPOC ---
Discharge Care Plan Report Symptoms to Your Doctor -Temperate above 100.5 degrees -Redness, of incision or excessive or foul smelling drainage -Unusual pain or calf pain -Increased vaginal bleeding -Painful or difficulty urinating -Feelings of extreme sadness or anxiety after 2 weeks Goals to Promote Your Health * To prevent worsening of your condition and complications * To maintain your health at the optimal level Directions to Meet Your Goals Take your medications as prescribed Follow your dietary instruction Follow activity as directed Ensure plenty of rest for recovery Drink fluids for hydration Keep your appointments as scheduled Take your immunizations and boosters as scheduled If your symptoms worsen call your PCP, if no PCP go to Urgent Care Center or Emergency Room Smoking is Dangerous to Your Health. Avoid second hand smoke Call the 24-hour crisis hotline for domestic abuse at Leticia Maldonado MD Feb 18, 2017 10:36
[2017-02-18 15:06] LABS: ABACAVIR SUSC (()); ATAZANAVIR WITH RITONAVIR SUSC (()); DARUNAVIR WITH RITONAVIR SUSC (()); DIDANOSINE PR (()); EFAVIRENZ RESIST (()); EMTRICITABINE SUSC (()); ETRAVIRINE PR (()); FOSAMPRENAVIR WITH RITONAVIR SUSC (()); HIV-1 GENOTYPING INTERP (()); INDINAVIR WITH RITONAVIR SUSC (()); LAMIVUDINE SUSC (()); LOPINAVIR WITH RITONAVIR SUSC (()); NELFINAVIR SUSC (()); NEVIRAPINE RESIST (()); RILPIVIRINE RESIST (()); SAQUINAVIR WITH RITONAVIR SUSC (()); STAVUDINE PR (()); TENOFOVIR SUSC (()); TIPRANAVIR WITH RITONAVIR SUSC (()); ZIDOVUDINE PR (())
--- NOTE | 2017-02-18 17:01 | PD.OB.ANTE ---
Subjective Diagnosis: (1) IV drug abuse complicating Diagnosis: Principal (2) Abdominal pain affecting Diagnosis: Principal (3) Malaise and fatigue Diagnosis: Principal (4) Hepatitis C Diagnosis: Principal (5) Encounter for screening for human immunodeficiency virus [HIV] Diagnosis: Principal (6) Dilaudid use disorder, severe, dependence Diagnosis: Principal (7) Cocaine abuse affecting Diagnosis: Principal Interval History Patient reports increased anxiety regarding confirmatory PCR testing for HIV. Patient does not report new symptoms at this time. Objective Lab & Micro Results Date/Time Procedure Status Source Growth 02/16/17 17:45 MRSA Surveillance Culture - Final Complete Skin Scrapings NO MRSA ISOLATED Physical Exam GENERAL: Well-nourished, well-developed patient. CARDIOVASCULAR: Normal perfusion, normal rate. RESPIRATORY: Normal rate, no distress ABDOMEN/GI: Abdomen soft, non-tender. Gravid EXTREMITIES: Without signs of DVT. GENITOURINARY: (Exam 02/12/2017) External Genitalia: intact and normal in appearance Cervix: Normal in appearance without visible lesion Uterine Contractions: None FHT's: (intermittent- last at 10 am 02/17) Category: 1 Baseline: 130 Reactive: Y Variability: Mod Decels: None Assessment and Plan Problem List: (1) IV drug abuse complicating Status: Acute (2) Abdominal pain affecting Status: Acute (3) Malaise and fatigue Status: Acute (4) Hepatitis C Status: Acute (5) Encounter for screening for human immunodeficiency virus [HIV] Status: Acute (6) Dilaudid use disorder, severe, dependence Status: Acute (7) Cocaine abuse affecting Status: Acute Assessment & Plan: IUP at 30 0/7 weeks (PATT 04/29/2017) -Continue intermittent monitoring -Continue continuous tocometry - labs: Hep B, RPR negative. Immune to rubella -GC/Chlamydia negative -US 02/11: Cervical length 3.4. Amniotic fluid index WNL. Biometries consistent with PATT. BPP 06/01 Hepatitis C Impression: Antibody reactive; known disease. Genotype 1a. HCV RNA 9.37 million. HCV RNA PCR 6.97 IU. LFT's- AST 54, ALT 92, ALK P 166. ID consulted Screen for HIV positive Impression: Confirmatory testing positive for HIV-1. HIV-2 negative. ID consulted Lymphocyte testing: -CD4 527 -CD8 1319 (H) -Absolute Lymphocytes 2131 HIV RNA 4390 Viral load testing resulted: sensitive to Truvada -ID consulted -Patient started on empiric Truvada and Raltegravir IV drug use Impression: Dependence on IV Dilaudid in association with occasional cocaine and marijuana use. This time, patient is currently weighing treatment options ( close monitoring subsequently in order to help patient weigh options of risk of relapse on home Subutex (q2wk appointments with Dr. Maldonado) versus project warm stay) while having discussions with Dr. Maldonado and her mother. -Continue trial of Subutex 4 mg TID with additional PRN 4mg Anxiety/Depression -Zoloft started for depression -Ativan for anxiety -provided diagnosis counseling Social Impression: Patient evaluated by case management/social programs and given resources -Patient will need PCP for ID referral Jason Jefferson MD R2 Feb 18, 2017 17:01
[2017-02-18] MEDS ORDERED: ACETAMINOPHEN 325 MG TAB PO PRN (17:30)
[2017-02-18] MEDS: REMOVE OLD NICODERM (NICOTINE) PATCH T-DERMAL SCH (21:00)
[2017-02-19] MEDS: cloNIDine HCL 0.1 MG TAB PO PRN (04:30)
[2017-02-19] MEDS: NICOTINE 21 MG/24 HR PATCH T-DERMAL SCH ×2 (08:36→08:44)
[2017-02-19] MEDS: EMTRICITABINE/TENOFOVIR 200 MG/300 MG TAB PO SCH (08:36)
[2017-02-19] MEDS: BUPRENORPHINE HCL 8 MG SUBLINGUAL TAB SL SCH ×3 (08:37→21:30)
[2017-02-19] MEDS: SERTRALINE HCL 100 MG TAB PO SCH (08:37)
[2017-02-19] MEDS: FERROUS SULFATE 325 MG (65 MG ELEMENTAL IRON) TAB PO SCH (08:37)
[2017-02-19] MEDS: DOCUSATE SODIUM 100 MG CAP PO SCH ×2 (08:37→21:30)
[2017-02-19] MEDS ORDERED: NORV100T PO (09:27)
[2017-02-19] MEDS ORDERED: ATAZ200 PO (09:27)
[2017-02-19] MEDS: RITONAVIR 100 MG TAB PO SCH (09:35)
[2017-02-19] MEDS: ATAZANAVIR 200 MG CAP PO SCH (09:35)
--- NOTE | 2017-02-19 12:38 | HHI.IDPN ---
Note Infectious Disease Note Discussed with Dr Jefferson HIV genotype result is back I reviewed it this morning I will change Raltegravir to Atazanavir and Ritonavir Continue Alejandro Will need fup with HIV provider to follow her while on HAART Natalia Angel MD, MD Feb 19, 2017 12:38
[2017-02-19] MEDS: REMOVE OLD NICODERM (NICOTINE) PATCH T-DERMAL SCH (21:00)
[2017-02-20] MEDS: cloNIDine HCL 0.1 MG TAB PO PRN (00:37)
[2017-02-20] MEDS: EMTRICITABINE/TENOFOVIR 200 MG/300 MG TAB PO SCH (09:49)
[2017-02-20] MEDS: ATAZANAVIR 200 MG CAP PO SCH (09:49)
[2017-02-20] MEDS: RITONAVIR 100 MG TAB PO SCH (09:49)
[2017-02-20] MEDS: SERTRALINE HCL 100 MG TAB PO SCH (09:49)
[2017-02-20] MEDS: DOCUSATE SODIUM 100 MG CAP PO SCH ×2 (09:50→21:02)
[2017-02-20] MEDS: FERROUS SULFATE 325 MG (65 MG ELEMENTAL IRON) TAB PO SCH (09:50)
[2017-02-20] MEDS: NICOTINE 21 MG/24 HR PATCH T-DERMAL SCH (09:50)
[2017-02-20] MEDS: BUPRENORPHINE HCL 8 MG SUBLINGUAL TAB SL SCH ×3 (11:15→21:02)
--- NOTE | 2017-02-20 12:48 | PD.OB.ANTE ---
Subjective Diagnosis: (1) IV drug abuse complicating Diagnosis: Principal (2) Abdominal pain affecting Diagnosis: Principal (3) Malaise and fatigue Diagnosis: Principal (4) Hepatitis C Diagnosis: Principal (5) Encounter for screening for human immunodeficiency virus [HIV] Diagnosis: Principal (6) Dilaudid use disorder, severe, dependence Diagnosis: Principal (7) Cocaine abuse affecting Diagnosis: Principal Interval History Ms. Fleming reports that she is doing well at this time; no new complaints. Objective Lab & Micro Results Test 02/19/17 14:30 Fibronectin NEGATIVE Date/Time Procedure Status Source Growth 02/16/17 17:45 MRSA Surveillance Culture - Final Complete Skin Scrapings NO MRSA ISOLATED Assessment and Plan Problem List: (1) IV drug abuse complicating Status: Acute (2) Abdominal pain affecting Status: Acute (3) Malaise and fatigue Status: Acute (4) Hepatitis C Status: Acute (5) Encounter for screening for human immunodeficiency virus [HIV] Status: Acute (6) Dilaudid use disorder, severe, dependence Status: Acute (7) Cocaine abuse affecting Status: Acute Assessment & Plan: IUP at 30 0/7 weeks (PATT 04/29/2017) -Continue intermittent monitoring -Continue continuous tocometry - labs: Hep B, RPR negative. Immune to rubella -GC/Chlamydia negative -US 02/11: Cervical length 3.4. Amniotic fluid index WNL. Biometries consistent with PATT. BPP 06/01 Hepatitis C Impression: Antibody reactive; known disease. Genotype 1a. HCV RNA 9.37 million. HCV RNA PCR 6.97 IU. LFT's- AST 54, ALT 92, ALK P 166. ID consulted Screen for HIV positive Impression: Confirmatory testing positive for HIV-1. HIV-2 negative. ID consulted Lymphocyte testing: -CD4 527 -CD8 1319 (H) -Absolute Lymphocytes 2131 HIV RNA 4390 Viral load testing resulted: sensitive to Truvada -ID consulted -Continue Truvada -Raltegravir changed to Atazanavir and Ritonavir IV drug use Impression: Dependence on IV Dilaudid in association with occasional cocaine and marijuana use. This time, patient is currently weighing treatment options ( close monitoring subsequently in order to help patient weigh options of risk of relapse on home Subutex (q2wk appointments with Dr. Maldonado) versus project warm stay) while having discussions with Dr. Maldonado and her mother. -Continue trial of Subutex 4 mg TID with additional PRN 4mg Anxiety/Depression -Zoloft started for depression -Ativan for anxiety -provided diagnosis counseling Contractions Impression: On CTG 02/19; resolved after IV fluids -FFN performed yesterday- negative -Continue intermittent EFM Social Impression: Patient evaluated by case management/social programs and given resources -Patient's referrals to PCP, ID, medication management achieved by CM; anticipate medications available for patient 02/22 Jason Jefferson MD R2 Feb 20, 2017 12:48
[2017-02-20] MEDS: REMOVE OLD NICODERM (NICOTINE) PATCH T-DERMAL SCH (21:00)
[2017-02-21] MEDS: NICOTINE 21 MG/24 HR PATCH T-DERMAL SCH ×2 (09:00→11:28)
[2017-02-21] MEDS: DOCUSATE SODIUM 100 MG CAP PO SCH ×2 (09:16→20:56)
[2017-02-21] MEDS: FERROUS SULFATE 325 MG (65 MG ELEMENTAL IRON) TAB PO SCH (09:16)
[2017-02-21] MEDS: ATAZANAVIR 200 MG CAP PO SCH (09:16)
[2017-02-21] MEDS: BUPRENORPHINE HCL 8 MG SUBLINGUAL TAB SL SCH ×3 (09:16→20:56)
[2017-02-21] MEDS: SERTRALINE HCL 100 MG TAB PO SCH (09:16)
[2017-02-21] MEDS: RITONAVIR 100 MG TAB PO SCH (09:16)
[2017-02-21] MEDS: EMTRICITABINE/TENOFOVIR 200 MG/300 MG TAB PO SCH (09:41)
[2017-02-21] MEDS ORDERED: SODIUM CHLORID 0.9% 500 ML INJ 500 ML IV SCH (11:15)
--- NOTE | 2017-02-21 12:58 | PD.OB.ANTE ---
Subjective Diagnosis: (1) IV drug abuse complicating Diagnosis: Principal (2) Abdominal pain affecting Diagnosis: Principal (3) Malaise and fatigue Diagnosis: Principal (4) Hepatitis C Diagnosis: Principal (5) Encounter for screening for human immunodeficiency virus [HIV] Diagnosis: Principal (6) Dilaudid use disorder, severe, dependence (7) Cocaine abuse affecting Diagnosis: Principal Interval History Ms. Fleming reports that she is doing well at this time. Patient reports normal appetite. Patient has stable mood. Patient does not have additional concerns at this time. Objective Lab & Micro Results Date/Time Procedure Status Source Growth 02/16/17 17:45 MRSA Surveillance Culture - Final Complete Skin Scrapings NO MRSA ISOLATED Assessment and Plan Problem List: (1) IV drug abuse complicating Status: Acute (2) Abdominal pain affecting Status: Acute (3) Malaise and fatigue Status: Acute (4) Hepatitis C Status: Acute (5) Encounter for screening for human immunodeficiency virus [HIV] Status: Acute (6) Dilaudid use disorder, severe, dependence Status: Acute (7) Cocaine abuse affecting Status: Acute Assessment & Plan: IUP at 30 3/7 weeks (PATT 04/29/2017) -Continue intermittent monitoring/tocometry - labs: Hep B, RPR negative. Immune to rubella -GC/Chlamydia negative -US 02/11: Cervical length 3.4. Amniotic fluid index WNL. Biometries consistent with PATT. BPP 06/01 Hepatitis C Impression: Antibody reactive; known disease. Genotype 1a. HCV RNA 9.37 million. HCV RNA PCR 6.97 IU. LFT's- AST 54, ALT 92, ALK P 166. ID consulted Screen for HIV positive Impression: Confirmatory testing positive for HIV-1. HIV-2 negative. ID consulted Lymphocyte testing: -CD4 527 -CD8 1319 (H) -Absolute Lymphocytes 2131 HIV RNA 4390 Viral load testing resulted: sensitive to Truvada -ID consulted -Continue Truvada -Raltegravir changed to Atazanavir and Ritonavir IV drug use Impression: Dependence on IV Dilaudid in association with occasional cocaine and marijuana use. This time, patient is currently weighing treatment options ( close monitoring subsequently in order to help patient weigh options of risk of relapse on home Subutex (q2wk appointments with Dr. Maldonado) versus project warm stay) while having discussions with Dr. Maldonado and her mother. -Continue trial of Subutex 4 mg TID with additional PRN 4mg Anxiety/Depression -Zoloft started for depression -Ativan for anxiety -provided diagnosis counseling Contractions Impression: On CTG 02/19; resolved after IV fluids -FFN performed 02/19- negative -Continue intermittent EFM Social Impression: Patient evaluated by case management/social programs and given resources -Patient's referrals to PCP, ID, medication management achieved by CM; anticipate medications available for patient 02/22 Jason Jefferson MD R2 Feb 21, 2017 12:57
[2017-02-21] MEDS: REMOVE OLD NICODERM (NICOTINE) PATCH T-DERMAL SCH (21:00)
[2017-02-21] MEDS: cloNIDine HCL 0.1 MG TAB PO PRN (21:11)
--- NOTE | 2017-02-22 08:28 | PD.OB.ANTE ---
Subjective Diagnosis: (1) IV drug abuse complicating (2) Abdominal pain affecting (3) Malaise and fatigue (4) Hepatitis C (5) Encounter for screening for human immunodeficiency virus [HIV] (6) Dilaudid use disorder, severe, dependence (7) Cocaine abuse affecting Interval History Quiet weekend while home health care social worker arranges for her ability to obtain all of her medications upon discharge. Wednesday she did have bout of UCs treated with hydration. She has NOT received steroids (by choice) She is not showing any signs of labor and FFN was negative. she is counseled on importance of consistency with HAART she desires to wean from her 12 mg subutex daily, which is something we can discuss and consider. today will do other viral loads as baseline and a BPP. discharge when home health care social worker have completed her wrap around. Objective Physical Exam GENERAL: Well-nourished, well-developed patient. CARDIOVASCULAR: Regular rate and rhythm without murmurs, gallops, or rubs. RESPIRATORY: Breath sounds equal bilaterally. No accessory muscle use. ABDOMEN/GI: Abdomen soft, non-tender. Fundus: [-] GENITOURINARY: External Genitalia: intact and normal in appearance Cervix: [-] Dilatation: [-] Effacement: [-] Station: [-] Presentation: [-] Membranes: [-] Uterine Contractions: [-] FHT's: Category: [-] Baseline: [-] Reactive: [-] Variability: [-] Decels: [-] EXTREMITIES: No cyanosis or edema, non-tender, without signs of DVT. Assessment and Plan Problem List: (1) IV drug abuse complicating Status: Acute (2) Abdominal pain affecting Status: Acute (3) Malaise and fatigue Status: Acute (4) Hepatitis C Status: Acute (5) Encounter for screening for human immunodeficiency virus [HIV] Status: Acute (6) Dilaudid use disorder, severe, dependence Status: Acute (7) Cocaine abuse affecting Status: Acute Assessment & Plan: IUP at 30 3/7 weeks (PATT 04/29/2017) -Continue intermittent monitoring/tocometry - labs: Hep B, RPR negative. Immune to rubella -GC/Chlamydia negative -US 02/11: Cervical length 3.4. Amniotic fluid index WNL. Biometries consistent with PATT. BPP 06/01 Hepatitis C Impression: Antibody reactive; known disease. Genotype 1a. HCV RNA 9.37 million. HCV RNA PCR 6.97 IU. LFT's- AST 54, ALT 92, ALK P 166. ID consulted Screen for HIV positive Impression: Confirmatory testing positive for HIV-1. HIV-2 negative. ID consulted Lymphocyte testing: -CD4 527 -CD8 1319 (H) -Absolute Lymphocytes 2131 HIV RNA 4390 Viral load testing resulted: sensitive to Truvada -ID consulted -Continue Truvada -Raltegravir changed to Atazanavir and Ritonavir IV drug use Impression: Dependence on IV Dilaudid in association with occasional cocaine and marijuana use. This time, patient is currently weighing treatment options ( close monitoring subsequently in order to help patient weigh options of risk of relapse on home Subutex (q2wk appointments with Dr. Maldonado) versus project warm stay) while having discussions with Dr. Maldonado and her mother. -Continue trial of Subutex 4 mg TID with additional PRN 4mg Anxiety/Depression -Zoloft started for depression -Ativan for anxiety -provided diagnosis counseling Contractions Impression: On CTG 02/19; resolved after IV fluids -FFN performed 02/19- negative -Continue intermittent EFM Social Impression: Patient evaluated by case management/social programs and given resources -Patient's referrals to PCP, ID, medication management achieved by CM; anticipate medications available for patient 02/22 Leticia Maldonado MD February 22, 2017 08:28
[2017-02-22] MEDS: DOCUSATE SODIUM 100 MG CAP PO SCH ×2 (09:18→21:00)
[2017-02-22] MEDS: RITONAVIR 100 MG TAB PO SCH (09:19)
[2017-02-22] MEDS: EMTRICITABINE/TENOFOVIR 200 MG/300 MG TAB PO SCH (09:19)
[2017-02-22] MEDS: BUPRENORPHINE HCL 8 MG SUBLINGUAL TAB SL SCH ×3 (09:20→20:58)
[2017-02-22] MEDS: SERTRALINE HCL 100 MG TAB PO SCH (09:20)
[2017-02-22] MEDS: FERROUS SULFATE 325 MG (65 MG ELEMENTAL IRON) TAB PO SCH (09:20)
[2017-02-22] MEDS: ATAZANAVIR 200 MG CAP PO SCH (09:22)
[2017-02-22 17:29] LABS: AUTOMATED NEUTROPHIL # 3.9 TH/MM3 (1.8-7.7); BASOPHIL % 0.2 % (0.0-2.0); EOSINOPHIL % 0.6 % (0.0-4.0); HEMATOCRIT 30.4 % (35.0-46.0); HEMO FLAGS DIFF FINAL; LYMPH % 27.3 % (9.0-44.0); LYMPHOCYTE # 1.6 TH/MM3 (1.0-4.8); MEAN CELL VOLUME 79.6 FL (80.0-100.0); MEAN CORPUSCULAR HEMOGLOBIN 27.8 PG (27.0-34.0); MONO % 6.9 % (0.0-8.0); PLATELET COUNT 234 TH/MM3 (150-450); RED BLOOD COUNT 3.83 MIL/MM3 (4.00-5.30); RED CELL DISTRIBUTION WIDTH 13.2 % (11.6-17.2)
[2017-02-22] MEDS: cloNIDine HCL 0.1 MG TAB PO PRN (20:58)
[2017-02-22] MEDS: REMOVE OLD NICODERM (NICOTINE) PATCH T-DERMAL SCH (21:00)
[2017-02-23] MEDS: EMTRICITABINE/TENOFOVIR 200 MG/300 MG TAB PO SCH (08:51)
[2017-02-23] MEDS: FERROUS SULFATE 325 MG (65 MG ELEMENTAL IRON) TAB PO SCH (08:51)
[2017-02-23] MEDS: ATAZANAVIR 200 MG CAP PO SCH (08:51)
[2017-02-23] MEDS: RITONAVIR 100 MG TAB PO SCH (08:51)
[2017-02-23] MEDS: SERTRALINE HCL 100 MG TAB PO SCH (08:51)
[2017-02-23] MEDS: BUPRENORPHINE HCL 8 MG SUBLINGUAL TAB SL SCH ×3 (08:51→20:59)
[2017-02-23] MEDS: NICOTINE 21 MG/24 HR PATCH T-DERMAL SCH (09:00)
[2017-02-23] MEDS: DOCUSATE SODIUM 100 MG CAP PO SCH ×2 (09:00→20:59)
[2017-02-23] MEDS: REMOVE OLD NICODERM (NICOTINE) PATCH T-DERMAL SCH (21:00)
[2017-02-23] MEDS: cloNIDine HCL 0.1 MG TAB PO PRN (21:03)
[2017-02-24] MEDS: NICOTINE 21 MG/24 HR PATCH T-DERMAL SCH (09:00)
[2017-02-24] MEDS: EMTRICITABINE/TENOFOVIR 200 MG/300 MG TAB PO SCH (09:09)
[2017-02-24] MEDS: RITONAVIR 100 MG TAB PO SCH (09:09)
[2017-02-24] MEDS: ATAZANAVIR 200 MG CAP PO SCH (09:09)
[2017-02-24] MEDS: DOCUSATE SODIUM 100 MG CAP PO SCH (09:10)
[2017-02-24] MEDS: FERROUS SULFATE 325 MG (65 MG ELEMENTAL IRON) TAB PO SCH (09:10)
[2017-02-24] MEDS: BUPRENORPHINE HCL 8 MG SUBLINGUAL TAB SL SCH (09:10)
[2017-02-24] MEDS: SERTRALINE HCL 100 MG TAB PO SCH (09:10)
--- NOTE | 2017-03-31 18:34 | HHI.DS ---
Discharge Summary Admission Date Feb 11, 2017 at 05:06 Discharge Date: February 22, 2017 Admitting Diagnosis Abdominal pain, (1) HIV disease affecting in third trimester, antepartum Diagnosis: Principal (2) Dilaudid use disorder, severe, dependence Diagnosis: Principal (3) Cocaine abuse affecting Diagnosis: Principal (4) IV drug abuse complicating Diagnosis: Principal (5) Hepatitis C Diagnosis: Secondary Consultants Infectious disease Maternal medicine Procedures Echocardiogram- normal EF, no vegetations seen Imaging OB US 02/18: No cardiac abnormalities PE at Discharge GENERAL: Well-nourished, well-developed patient. CARDIOVASCULAR: Regular rate and rhythm without murmurs, gallops, or rubs. RESPIRATORY: Breath sounds equal bilaterally. No accessory muscle use. ABDOMEN/GI: Abdomen soft, non-tender. Fundus: [-] GENITOURINARY: External Genitalia: intact and normal in appearance Cervix: [-] Dilatation: [-] Effacement: [-] Station: [-] Presentation: [-] Membranes: [-] Uterine Contractions: [-] FHT's: Category: [-] Baseline: [-] Reactive: [-] Variability: [-] Decels: [-] EXTREMITIES: No cyanosis or edema, non-tender, without signs of DVT. Hospital Course Ms. Fleming is a 27 yo G1 with PMH of polysubstance abuse and Hep C at 29 weeks GA who was admitted 02/11 for sharp lower abdominal pain. Patient had reported current IV Dilaudid use and cocaine use. Due to lack of care, labs obtained. Rhogam given for Rh negative status. Dr. Maldonado was notified for assistance due to patient's polysubstance abuse. US performed demonstrating consistent biometries with PATT, BPP 06/01. HIV screening positive; confirmatory testing performed and found to be positive for HIV1. ID consulted and resistance testing performed. Genotype/quant screening of Hep C also performed ; RNA elevated. LFT's mildly elevated. Patient started on Truvada and Raltegravir by ID; Raltegravir subsequently changed to Atazanavir and Ritonavir based on resistance testing. Regarding patient's history of IV Dilaudid use, patient was placed on Subutex 4 mg 3 times a day. Regarding patient's history of anxiety/depression, she was started on Zoloft. Patient also given Ativan for anxiety. Patient underwent brief episodes of contractions while hospitalized; FFN performed 02/19 and found to be negative. Patient given resources regarding social programs for substance abuse and HIV; patient discharged with plans to follow-up with Dr. Maldonado in near future. Pt Condition on Discharge: Fair Discharge Disposition: Discharge Home Discharge Instructions DIET: Follow Instructions for: As Tolerated, No Restrictions Activities you can perform: Pelvic Rest Follow up Referrals: [facility] - 1 Week @ [facility] with Leticia Maldonado MD New Medications: Atazanavir (Reyataz) 200 Mg Cap 400 MG PO DAILY #30 CAP Buprenorphine (Buprenorphine) 8 Mg Subl 4 MG SL TID@,, OPIOID MAINTENANCE #14 FILM Clonidine (Catapres) 0.1 Mg Tab 0.1 MG PO Q8HR PRN WITHDRAWAL #90 TAB Emtricitabine-Tenofovir Disoproxil Fumarate (Truvada) 200-300 Mg Tab 1 TAB PO DAILY Hives #14 TAB Hydroxyzine Pamoate (Hydroxyzine Pamoate) 50 Mg Cap 50 MG PO Q8H PRN ITCHING #30 CAP Nicotine Patch (Nicotine Patch) 21 Mg/24 Hr Patch 1 PATCH T-DERMAL DAILY smoking #30 PATCH Raltegravir (Isentress) 400 Mg Tab 400 MG PO BID Hives #14 TAB Ritonavir (Norvir) 100 Mg Tab 100 MG PO DAILY #30 TAB Sertraline (Zoloft) 100 Mg Tab 100 MG PO DAILY depression #30 TAB Discontinued Medications: Hydromorphone (Dilaudid) 8 Mg Tab 8 MG IV TID PRN Pain Management Ref 0 TAB Miscellaneous (No Current Meds) [facility] R2 Mar 31, 2017 18:34 anticipate medications available for patient 02/22 Pt Condition on Discharge: Fair Discharge Disposition: Discharge Home Discharge Instructions DIET: Follow Instructions for: As Tolerated, No Restrictions Activities you can perform: Pelvic Rest Follow up Referrals: [facility] - 1 Week @ [facility] with Leticia Maldonado MD New Medications: Atazanavir (Reyataz) 200 Mg Cap 400 MG PO DAILY #30 CAP Buprenorphine (Buprenorphine) 8 Mg Subl 4 MG SL TID@,, OPIOID MAINTENANCE #14 FILM Clonidine (Catapres) 0.1 Mg Tab 0.1 MG PO Q8HR PRN WITHDRAWAL #90 TAB Emtricitabine-Tenofovir Disoproxil Fumarate (Truvada) 200-300 Mg Tab 1 TAB PO DAILY Hives #14 TAB Hydroxyzine Pamoate (Hydroxyzine Pamoate) 50 Mg Cap 50 MG PO Q8H PRN ITCHING #30 CAP Nicotine Patch (Nicotine Patch) 21 Mg/24 Hr Patch 1 PATCH T-DERMAL DAILY smoking #30 PATCH Raltegravir (Isentress) 400 Mg Tab 400 MG PO BID Hives #14 TAB Ritonavir (Norvir) 100 Mg Tab 100 MG PO DAILY #30 TAB Sertraline (Zoloft) 100 Mg Tab 100 MG PO DAILY depression #30 TAB Discontinued Medications: Hydromorphone (Dilaudid) 8 Mg Tab 8 MG IV TID PRN Pain Management Ref 0 TAB Miscellaneous (No Current Meds) Misc Jason Jefferson MD R2 Mar 31, 2017 18:34
== END 2017-02-24 16:46 | disposition home or self-care (01) ==
LOC: HOBED 04:20 → H2EA 05:06
PROVIDERS: ADMIT Obstetrics & Gynecology; ATTEND Obstetrics & Gynecology
DX: O26.893 Other specified pregnancy related conditions, third trimester (principal); R10.30 Lower abdominal pain, unspecified; F14.10 Cocaine abuse, uncomplicated; O98.413 Viral hepatitis complicating pregnancy, third trimester; Z86.14 Personal history of Methicillin resistant Staphylococcus aureus infection; F17.210 Nicotine dependence, cigarettes, uncomplicated; O99.323 Drug use complicating pregnancy, third trimester; Z3A.29 29 weeks gestation of pregnancy; F11.20 Opioid dependence, uncomplicated; O98.713 Human immunodeficiency virus [HIV] disease complicating pregnancy, third trimester; R06.02 Shortness of breath
CPT/HCPCS: 76805; 76825; 76827; 80053; 80061; 80074; 80307; 81001; 82731; 82951; 85025; 86355; 86357; 86359; 86360; 86480; 86592; 86695; 86696; 86701; 86702; 86703; 86762; 86850; 86900; 86901; 87081; 87491; 87497; 87522; 87536; 87591; 87640; 87641; 87901; 87902; 90384; 93306; 93325; 96372; 99284; G0378; G0481; J7040; J7120; 76937; 80348; G0480; J2790

== ENCOUNTER 2017-03-16 22:14 | Emergency (ER) | payer MEDICAID ==
[~2017-03-16 22:14] MED LIST changes: +ATAZ200 PO; +BUPR8SUB SL; +CLON.1 PO; +EMTR1TAB PO; +HYDR50CA PO; +NICO21DI2 T-DERMAL; +NORV100T PO; +RALT400 PO; -Z.0.NO CURRENT MEDS; +ZOLO100T PO
--- NOTE | 2017-03-16 22:43 | PD ---
HPI Chief Complaint Pt is a 27 yo G1, P0, presenting at 34 weeks with c/o vaginal spotting about 30 minutes ago. [facility] complicated by h/p Hep C, HIV, and h/o illicit drug use. Denies any abdominal pain. first episode. pale pink, only on wiping. Active FMs. Pt admits to recent SI Date Seen: March 16, 2017 Time Seen: 22:30 Travel History International Travel<30 Days: No Contact w/Intl Traveler<30Days: No Known Affected Area: No History of Present Illness HPI Pt reports first episode of pale pink vaginal spotting after wiping postvoid No abdominal pain or contractions. Active movements No fevers or chills Para: 0 : 1 Last Menstrual Period: March 16, 2017 Miscarriage: 0 : 0 History Past Medical History Narrative Medical Hepatitis C HIV Past Surgical History Surgical History: No Previous Surgery Social History Alcohol Use: No Tobacco Use: Yes Substance Abuse: Yes Allergies-Medications (Allergen,Severity, Reaction): Coded Allergies: Penicillin (Verified Allergy, Severe, 03/20/12) Home Meds Active Scripts Ritonavir (Norvir)100 Mg [id number] Mg PO DAILY #30 TAB Prov:Jason Jefferson MD R2 02/19/17 Atazanavir (Reyataz)200 Mg [id number] Mg PO DAILY #30 CAP Prov:Jason Jefferson MD R2 02/19/17 Sertraline (Zoloft)100 Mg [id number] Mg PO DAILY #30 TAB Prov:Leticia Maldonado MD 02/18/17 Raltegravir (Isentress)400 Mg [id number] Mg PO BID #14 TAB Prov:Leticia Maldonado MD 02/18/17 Nicotine Patch 21 Mg/24 Hr Patch1 Patch T-DERMAL DAILY #30 PATCH Prov:Leticia Maldonado MD 02/18/17 Hydroxyzine Pamoate 50 Mg Cap50 Mg PO Q8H PRN (ITCHING) #30 CAP Prov:Leticia Maldonado MD 02/18/17 Emtricitabine-Tenofovir Disoproxil Fumarate (Truvada)200-300 Mg Tab1 Tab PO DAILY #14 TAB Prov:Leticia Maldonado MD 02/18/17 Clonidine (Catapres)0.1 Mg Tab0.1 Mg PO Q8HR PRN (WITHDRAWAL) #90 TAB Prov:Leticia Maldonado MD 02/18/17 Buprenorphine 8 Mg Subl4 Mg SL TID@09,15,21 #14 FILM Prov:Leticia Maldonado MD 02/18/17 Review of Systems Except as stated in HPI: all other systems reviewed are Neg Physical Exam Narrative GENERAL: Well-nourished, well-developed patient. SKIN: Warm and dry. HEAD: Normocephalic and atraumatic. EYES: No scleral icterus. No injection or drainage. ENT: No nasal drainage noted. Mucous membranes pink. Airway patent. NECK: Supple, trachea midline. No JVD. CARDIOVASCULAR: Regular rate and rhythm without murmurs, gallops, or rubs. RESPIRATORY: Breath sounds equal bilaterally. No accessory muscle use. BREASTS: Bilateral exam showed no masses , no retractions, no nipple discharge. ABDOMEN/GI: Abdomen soft, non-tender, bowel sounds present, no rebound, no guarding Gravid to [34-] weeks size Fundal Height: [-34] Non tender on exam Cervix Ft dilated, 50% effaced, -3 station GENITOURINARY: External Genitalia: intact and normal in appearance BUS glands: [-] Cervix: [-] Dilatation: [-] Effacement: [-] Station: [-] Presentation: [-] Membranes: [intact or ruptured] Uterine Contractions: [-] FHT's: Category: [-] Baseline: [-] Reactive: [-] Variability: [-] Decels: [-] EXTREMITIES: No cyanosis or edema. BACK: Nontender without obvious deformity. No CVA tenderness. NEUROLOGICAL: Awake and alert. Motor and sensory grossly within normal limits. Five out of 5 muscle strength in all muscle groups. Normal speech. Data Data Vital Signs Reviewed: Yes [facility] Medical Record Reviewed: Yes Plan Pt is 34 weeks presenting with vaginal spotting. Recent SI. Normal cervical exam UA suggestive of UTI Diagnosis Diagnosis: Primary Impression: Vagina bleeding Additional Impression: UTI (urinary tract infection) Disposition: DISCHARGE HOME Condition: Good Patient Instructions: Urinary Tract Infection in (ED) John Levin MD March 16, 2017 22:43
[2017-03-16 23:27] LABS: BLOOD, URINE LARGE (NEG); COMMENT (UR) CULTURE INDICATED; CULTURE IF INDICATED CULTURE INDICATED; GLUCOSE,URINE NEG (NEG); KETONE, URINE TRACE mg/dL (NEG); MUCUS URINE MOD /lpf (OCC); NITRITE,URINE NEG (NEG); SQUAMOUS EPITHELIAL CELL URINE 6 /hpf (0-5)
[2017-03-16 23:28] LABS: URINE COLOR DARK-BROWN (YELLW/STRAW)
[2017-03-16] MEDS ORDERED: MACR100C2 PO (23:51)
[2017-03-16 23:58] LABS: AMPHETAMINE, URINE NEG (NEG); BARBITURATES, URINE NEG (NEG); COCAINE, URINE POS (NEG)
== END 2017-03-17 00:06 | disposition home or self-care (01) ==
LOC: HOBED 22:14
DX: O46.93 Antepartum hemorrhage, unspecified, third trimester (principal); O23.43 Unspecified infection of urinary tract in pregnancy, third trimester; Z3A.34 34 weeks gestation of pregnancy
CPT/HCPCS: 59025; 80307; 81001; 87086

== ENCOUNTER 2017-04-08 19:01 | Inpatient (IN) | payer MEDICAID ==
[~2017-04-08] VITALS: Ht 177.8 cm; Wt 70.8 kg
[~2017-04-08 19:01] MED LIST changes: +MACR100C2 PO
[2017-04-08] MEDS ORDERED: LACTATED RINGER'S 1000 ML INJ 1,000 ML IV ONE (19:14)
[2017-04-08 20:12] LABS: AUTOMATED NEUTROPHIL # 5.2 TH/MM3 (1.8-7.7); BASOPHIL % 0.6 % (0.0-2.0); EOSINOPHIL % 0.3 % (0.0-4.0); HEMATOCRIT 28.5 % (35.0-46.0); HEMO FLAGS DIFF FINAL; LYMPH % 20.7 % (9.0-44.0); LYMPHOCYTE # 1.5 TH/MM3 (1.0-4.8); MEAN CELL VOLUME 77.9 FL (80.0-100.0); MEAN CORPUSCULAR HEMOGLOBIN 26.2 PG (27.0-34.0); MEAN CORPUSCULAR HGB CONC 33.7 % (32.0-36.0); MONO % 6.7 % (0.0-8.0); NEUT % 71.7 % (16.0-70.0); PLATELET COUNT 233 TH/MM3 (150-450); RED BLOOD COUNT 3.66 MIL/MM3 (4.00-5.30); WHITE BLOOD COUNT 7.3 TH/MM3 (4.0-11.0)
[2017-04-08] MEDS ORDERED: CLINDAMYCIN INJ 600 MG in SODIUM CHLORIDE 0.9% INJ 100 ML IV SCH (20:15)
[2017-04-08 20:22] LABS: BACTERIA, URINE MOD /hpf; BLOOD, URINE NEG (NEG); COMMENT (UR) CULTURE INDICATED; CULTURE IF INDICATED CULTURE INDICATED; GLUCOSE,URINE NEG (NEG); KETONE, URINE NEG (NEG); MUCUS URINE FEW /lpf (OCC); NITRITE,URINE NEG (NEG); PH, URINE 6.5 (5.0-8.5); RENAL EPITHELIAL CELLS 1 /hpf; SQUAMOUS EPITHELIAL CELL URINE 26 /hpf (0-5); TRANSITIONAL EPI CELLS, URINE <1 /hpf
[2017-04-08 20:23] LABS: AMPHETAMINE, URINE NEG (NEG); BARBITURATES, URINE NEG (NEG); URINE COLOR ORANGE (YELLW/STRAW)
[2017-04-08] MEDS ORDERED: BUPRENORPHINE HCL 8 MG SUBLINGUAL TAB SL ONE (20:30)
[2017-04-08 20:35] LABS: ANION GAP 11 MEQ/L (5-15); AST (GOT) 66 U/L (15-37); BICARBONATE 25.5 MEQ/L (21.0-32.0); BLOOD UREA NITROGEN 7 MG/DL (7-18); CHLORIDE 100 MEQ/L (98-107); GLOMERULAR FILTRATION RATE 96 ML/MIN (>89); POTASSIUM 3.6 MEQ/L (3.5-5.1); SODIUM (NA) 136 MEQ/L (136-145)
[2017-04-08 20:36] LABS: ALT (GPT) 99 U/L (10-53)
--- NOTE | 2017-04-08 20:36 | HHI.HP ---
HPI Chief Complaint 36 3/7 week IUP with minimal PNC, diagnosis of HIV 8 weeks ago oligohydramnios, hep C, active opioid addiction Date Seen: Apr 08, 2017 Travel History International Travel<30 Days: No Contact w/Intl Traveler<30Days: No Known Affected Area: No History of Present Illness HPI Johanna is a 27 yo swf at 36 3/7 by late dating, seen in my office today. It was taken several weeks of attempted visits by the health department, [place] [facility], [facility] and Peer support of [employer] to track her down and convince her to come to office today. She states she is taking her retrovirals. She ran out of buprenorphine and relapsed to IV dilaudid and other opioids that were available. She is tearful and full of remorse and very frightened that [facility]CF will take away her baby. Biophysical done in the office showed MEJIA < 5. Placenta is highly calcified and has several lakes. BPP otherwise was 6/8. Cervix was 3 cm 80%/anterior and low. She has fresh tracks and many sores and scabs on her extremities. She was advised to head to [place] for scheduled induction. In truth, we will need to perform a primary section, as we have no recent HIV viral load. I did not discuss mode of delivery as I did not want her to go missing in action. Last time I tried to send her in and she did not arrive. She is also hep C positive. Bacterial endocarditis or sepsis were ruled out at initial hospital visit in January. At that visit in early January she came in with no PNC and was seen by the residents and . I was consulted and agreed to see her as an outpatient for care. During that visit she was diagnosed with HIV and the appropriate services were contacted. While deciding upon ideal regimen based on susceptibilities, she was transitioned to subutex from her IV dilaudid, morphine and heroin. She made a follow up visit in my office 4 days letter but then was lost to follow up until today. No leaking, bleeding. No SALGUERO, blurred vision, nausea or vomiting. GFM. GBS+ and PCN allergic. She arrived at our unit about 7 pm. Para: 0 : 1 Last Menstrual Period: Apr 08, 2017 History Past Medical History Medical History: Denies Significant Hx Obstetric History Obstetric History this is her first Past Surgical History Narrative Surgical she apparently had rods and pins in both legs at some point. Family History Family History: Negative Social History Tobacco Use: Yes Substance Abuse: Yes Allergies-Medications (Allergen,Severity, Reaction): Coded Allergies: Penicillin (Verified Allergy, Severe, 04/08/17) Home Meds Active Scripts Nitrofurantoin Monohydrate Macrocrystals (Macrobid)100 Mg Grt444 Mg PO BID #10 CAP Ref 0 Prov:John Levin MD 03/16/17 Ritonavir (Norvir)100 Mg Whj889 Mg PO DAILY #30 TAB Prov:Jason Jefferson MD R2 02/19/17 Atazanavir (Reyataz)200 Mg Ydm358 Mg PO DAILY #30 CAP Prov:Jason Jefferson MD R2 02/19/17 Sertraline (Zoloft)100 Mg Ugs657 Mg PO DAILY #30 TAB Prov:Leticia Maldonado MD 02/18/17 Raltegravir (Isentress)400 Mg Jrs657 Mg PO BID #14 TAB Prov:Leticia Maldonado MD 02/18/17 Nicotine Patch 21 Mg/24 Hr Patch1 Patch T-DERMAL DAILY #30 PATCH Prov:Leticia Maldonado MD 02/18/17 Hydroxyzine Pamoate 50 Mg Cap50 Mg PO Q8H PRN (ITCHING) #30 CAP Prov:Leticia Maldonado MD 02/18/17 Emtricitabine-Tenofovir Disoproxil Fumarate (Truvada)200-300 Mg Tab1 Tab PO DAILY #14 TAB Prov:Leticia Maldonado MD 02/18/17 Clonidine (Catapres)0.1 Mg Tab0.1 Mg PO Q8HR PRN (WITHDRAWAL) #90 TAB Prov:Leticia Maldonado MD 02/18/17 Buprenorphine 8 Mg Subl4 Mg SL TID@,15,21 #14 FILM Prov:Leticia Maldonado MD 02/18/17 Review of Systems General / Constitutional: Chills Eyes: Pain HENT: Lightheadedness Cardiovascular: Tachycardia Physical Exam Narrative GENERAL: Well-nourished, well-developed patient. SKIN: Warm and dry. HEAD: Normocephalic and atraumatic. EYES: No scleral icterus. No injection or drainage. ENT: No nasal drainage noted. Mucous membranes pink. Airway patent. NECK: Supple, trachea midline. No JVD. CARDIOVASCULAR: Regular rate and rhythm without murmurs, gallops, or rubs. RESPIRATORY: Breath sounds equal bilaterally. No accessory muscle use. BREASTS: Bilateral exam showed no masses , no retractions, no nipple discharge. ABDOMEN/GI: Abdomen soft, non-tender, bowel sounds present, no rebound, no guarding Gravid to [-] weeks size Fundal Height: [-] GENITOURINARY: External Genitalia: intact and normal in appearance 3/80%/-1 FHT's: Category: [-] category 1 EXTREMITIES: No cyanosis or edema. BACK: Nontender without obvious deformity. No CVA tenderness. NEUROLOGICAL: Awake and alert. Motor and sensory grossly within normal limits. Five out of 5 muscle strength in all muscle groups. Normal speech. Data Data Orders Admit To Inpatient (04/08/17 ) Code Status (04/08/17 19:14) Vital Signs (Adult) .ON ADMISSION (04/08/17 19:14) Activity Oob Ad Clemencia (04/08/17 19:14) Heart (04/08/17 19:14) Urinary Catheter Management DARYA.Q8H (04/08/17 19:14) ^ Preps (04/08/17 19:14) Scd / [place] / Foot Pump DARYA.QSHIFT (04/08/17 19:14) ^ Ultrasound For Locatio (04/08/17 19:14) Lactated Ringer's 1000 Ml Inj (Lr 1000 M (04/08/17 19:14) Lactated Ringer's 1000 Ml Inj (Lr 1000 M (04/08/17 19:44) Citric Acid-Sodium Citrate Liq (Bicitra (04/08/17 20:45) Type And Screen (04/08/17 19:14) Complete Blood Count With Diff (04/08/17 19:14) Urinalysis - C+S If Indicated (04/08/17 19:14) Clindamycin Inj (Cleocin Inj) (04/08/17 20:15) Comprehensive Metabolic Panel (04/08/17 19:14) Hepatitis Profile (6/15/17 19:14) Ob/Psych Drug Screen, Urine (04/08/17 19:14) Hiv Pcr Rna By Bdna (04/08/17 19:14) Zidovudine Inj (Retrovir Inj) (04/08/17 21:00) Zidovudine Inj (Retrovir Inj) (04/08/17 22:00) Diet Regular Basic (04/08/17 Dinner) Buprenorphine (Buprenorphine) (04/08/17 20:30) Buprenorphine (Buprenorphine) (04/09/17 00:15) Hydroxyzine Pamoate (Vistaril) (04/08/17 20:15) Assessment/Plan Assessment and Plan 36+ week IUP with diagnosis of HIV during third trimester. No recent viral load so must proceed with section. Needs zidovudine for [address] timing at 11-midnight at the earliest. Ideally want daytime NICU staffing for this delivery. Will do section at 7:30 M Opioid addiction active. States last dilaudid > 24 hours so should be able to start buprenorphine tabs (4 mg every four hours x 4 prn and re evaluate.) GBS+ clindimycin 1hour before section Notify case management in the morning, along with mamma bear and Healthy Start. oligohydramsnios--continuous monitoring until 7 am decision not to give betamethasone based on viremia and further immunospression prio to section. Leticia Maldonado MD Apr 08, 2017 20:36
[2017-04-08 20:38] LABS: ALKALINE PHOSPHATASE 243 U/L (45-117); TOTAL BILIRUBIN ADULT 0.8 MG/DL (0.2-1.0)
[2017-04-08] MEDS ORDERED: CITRIC ACID-SODIUM CITRATE LIQ 30 ML UDC PO SCH (20:45)
[2017-04-08 20:46] LABS: COCAINE, URINE POS (NEG)
[2017-04-08] MEDS ORDERED: ZIDOVUDINE IV ONE ×2 (21:00)
[2017-04-08] MEDS ORDERED: WATER IV ONE ×4 (21:00→23:30)
[2017-04-08] MEDS ORDERED: DEXTROSE 5% IV ONE ×4 (21:00→23:30)
[2017-04-08] MEDS: LACTATED RINGER'S 1000 ML INJ 1,000 ML IV SCH ×2 (21:03→23:30)
[2017-04-08 21:09] VITALS: RESP 18
[2017-04-08 21:56] VITALS: RESP 18
[2017-04-08] MEDS: ZIDOVUDINE IV SCH ×2 (22:06)
[2017-04-08] MEDS: DEXTROSE IV SCH ×2 (22:06)
[2017-04-08] MEDS ORDERED: WATER IV SCH ×4 (22:57→23:28)
[2017-04-08] MEDS ORDERED: DEXTROSE 5% IV SCH ×4 (22:57→23:28)
[2017-04-08] MEDS ORDERED: CLINDAMYCIN IV SCH ×4 (22:57→23:28)
[2017-04-08 23:29] VITALS: RESP 16
[2017-04-08] MEDS ORDERED: CLINDAMYCIN IV ONE ×2 (23:30)
[2017-04-09] VITALS (22 sets, daily range): BP systolic 94–150; BP diastolic 43–98; PULSE 7–77; RESP 16–20; TEMP 97.6–98.3; O2SAT 99
[2017-04-09] MEDS ORDERED: BUPRENORPHINE HCL 8 MG SUBLINGUAL TAB SL PRN (00:15)
[2017-04-09] MEDS: ZIDOVUDINE IV SCH ×8 (04:06→13:35)
[2017-04-09] MEDS: DEXTROSE IV SCH ×8 (04:06→13:35)
[2017-04-09] MEDS ORDERED: CITRIC ACID-SODIUM CITRATE LIQ 30 ML UDC ONE (07:17)
[2017-04-09] MEDS ORDERED: ePHEDrine/NS 25 MG/5 ML SYR ONE (07:21)
[2017-04-09] MEDS ORDERED: OXYTOCIN 10 UNIT/ML AMP ONE (07:41)
--- NOTE | 2017-04-09 07:47 | PD.OB.ANTE ---
Subjective Interval History 36+ weeks oligohydramnios new diagnosis HIV, hep c polysubstance use Objective Vital Signs Vital Signs Date Time Temp Pulse Resp B/P Pulse Ox O2 Delivery O2 Flow Rate FiO2 04/09/17 06:30 18 04/09/17 04:09 77 100/59 04/09/17 04:05 75 04/09/17 04:00 73 04/09/17 03:43 98.1 16 04/09/17 02:58 16 04/09/17 00:58 66 94/43 04/09/17 00:57 97.8 18 04/09/17 00:55 74 04/09/17 00:50 70 04/09/17 00:45 72 04/08/17 23:29 16 04/08/17 21:56 18 04/08/17 21:09 18 Lab & Micro Results Test 04/08/17 04/08/17 19:00 20:00 Urine Color ORANGE Urine Turbidity HAZY Urine pH 6.5 Urine Specific [place] 1.029 Urine Protein 100 mg/dL Urine Glucose (UA) NEG mg/dL Urine Ketones NEG mg/dL Urine Occult Blood NEG Urine Nitrite NEG Urine Bilirubin MOD Urine Urobilinogen 8.0 MG/DL Urine Leukocyte Esterase LARGE Urine RBC 5 /hpf Urine WBC 60 /hpf Urine Squamous Epithelial 26 /hpf Cells Urine Transitional Epithelial <1 /hpf Cells Urine Renal Epithelial Cells 1 /hpf Urine Bacteria MOD /hpf Urine Mucus FEW /lpf Microscopic Urinalysis Comment CULTURE INDICATED Urine Opiates Screen POS Urine Barbiturates Screen NEG Urine Amphetamines Screen NEG Urine Benzodiazepines Screen NEG Urine Cocaine Screen POS Urine Cannabinoids Screen POS White Blood Count 7.3 TH/MM3 Red Blood Count 3.66 MIL/MM3 Hemoglobin 9.6 GM/DL Hematocrit 28.5 % Mean Corpuscular Volume 77.9 FL Mean Corpuscular Hemoglobin 26.2 PG Mean Corpuscular Hemoglobin 33.7 % Concent Red Cell Distribution Width 15.0 % Platelet Count 233 TH/MM3 Mean Platelet Volume 8.6 FL Neutrophils (%) (Auto) 71.7 % Lymphocytes (%) (Auto) 20.7 % Monocytes (%) (Auto) 6.7 % Eosinophils (%) (Auto) 0.3 % Basophils (%) (Auto) 0.6 % Neutrophils # (Auto) 5.2 TH/MM3 Lymphocytes # (Auto) 1.5 TH/MM3 Monocytes # (Auto) 0.5 TH/MM3 Eosinophils # (Auto) 0.0 TH/MM3 Basophils # (Auto) 0.0 TH/MM3 CBC Comment DIFF FINAL Differential Comment Sodium Level 136 MEQ/L Potassium Level 3.6 MEQ/L Chloride Level 100 MEQ/L Carbon Dioxide Level 25.5 MEQ/L Anion Gap 11 MEQ/L Blood Urea Nitrogen 7 MG/DL Creatinine 0.73 MG/DL Estimat Glomerular Filtration 96 ML/MIN Rate Random Glucose 81 MG/DL Calcium Level 8.4 MG/DL Total Bilirubin 0.8 MG/DL Aspartate Amino Transf 66 U/L (AST/SGOT) Alanine Aminotransferase 99 U/L (ALT/SGPT) Alkaline Phosphatase 243 U/L Total Protein 6.9 GM/DL Albumin 2.0 GM/DL Blood Type A NEGATIVE Antibody Screen NEGATIVE Date/Time Procedure Status Source Growth 04/08/17 19:00 Urine Culture Received Urine Clean Catch Pending Physical Exam GENERAL: Well-nourished, well-developed patient. CARDIOVASCULAR: Regular rate and rhythm without murmurs, gallops, or rubs. RESPIRATORY: Breath sounds equal bilaterally. No accessory muscle use. ABDOMEN/GI: Abdomen soft, non-tender. Fundus: [-] GENITOURINARY: External Genitalia: intact and normal in appearance Cervix: [-] Dilatation: [-] Effacement: [-] Station: [-] Presentation: [-] Membranes: [-] Uterine Contractions: [-] FHT's: Category: [-] Baseline: [-] Reactive: [-] Variability: [-] Decels: [-] EXTREMITIES: No cyanosis or edema, non-tender, without signs of DVT. Assessment and Plan Assessment and Plan counseled in detail with mom and grandma in the room need for section risks and benefits TAP block post op expectations Leticia Maldonado MD Apr 09, 2017 07:46
[2017-04-09] MEDS ORDERED: ACETAMINOPHEN 1000 MG/100 ML VIAL IV ONE (08:34)
[2017-04-09] MEDS ORDERED: SIMETHICONE 80 MG CHEWABLE TAB PO PRN (08:45)
[2017-04-09] MEDS ORDERED: ONDANSETRON HCL 4 MG/2 ML VIAL IV PUSH PRN (08:45)
[2017-04-09] MEDS ORDERED: oxyCODONE/ACETAMINOPHEN 5 MG/325 MG TAB PO PRN ×2 (08:45)
[2017-04-09] MEDS ORDERED: OXYTOCIN 30 UNITS-500ML PREMIX 500 ML IV ONE (08:45)
[2017-04-09] MEDS ORDERED: KETOROLAC TROMETHAMINE 60 MG/2 ML (IM) VIAL IM PRN (08:45)
[2017-04-09] MEDS ORDERED: SODIUM CHLORIDE 0.9% FLUSH 10 ML FLUSH IV FLUSH PRN (08:45)
--- NOTE | 2017-04-09 08:51 | PD.OB.DELI ---
Procedure Note Section Procedure Pre Op Diagnosis: (1) Oligohydramnios (2) HIV disease affecting in third trimester, antepartum (3) Cocaine abuse affecting (4) Dilaudid use disorder, severe, dependence (5) Hepatitis C Post Op Diagnosis: (1) Oligohydramnios (2) HIV disease affecting in third trimester, antepartum (3) Cocaine abuse affecting (4) Dilaudid use disorder, severe, dependence (5) Hepatitis C Performed by Dr. Leticia Maldonado and Dr. Elaine Wallace PGY-2 Procedure: Primary Low Transverse Sec Indication for delivery: Maternal medical problems, Other (oligohydramnios) Informed consent obtained: For anesthesia, For procedure Confirmed correct: Patient, Procedure, Site, Time-out taken Anesthesia: Spinal Medication prior to procedure: As documented in eMAR Monitoring during procedure: Blood pressure monitoring, microstrategy reports developer, Pulse oximetry Urinary catheter: Inserted using sterile technique Sterile preparation: In usual fashion Position: Supine with wedge to left side Operative Features Skin Incision: Transverse Uterine Incision: Low transverse w/knife / blunt ext Membranes Ruptured: Artificially, Appearance of fluid (clear) Presentation: Occiput anterior Delivery of infant: Assisted (vacuum assisted), Umbilical cord (nuchal cord x 1 ) Infant: Male One Minute : 8 Five Minute : 8 Weight: 2860g Status of infant: Viable, Cord blood, Nursery present Placenta delivered: Intact, Sent to pathology Medications: Antibiotics, Oxytocin Procedure tolerated: Well Maternal Condition: Stable Baby Complications: Respiratory distress Condition: Stable Procedure in detail See Dictation Elaine Wallace MD R2 Apr 09, 2017 08:51
[2017-04-09] MEDS ORDERED: MORPHINE SULFATE PF 5 MG/10 ML VIAL ONE (08:59)
[2017-04-09] MEDS ORDERED: ONDANSETRON HCL 4 MG/2 ML VIAL ONE (08:59)
[2017-04-09] MEDS ORDERED: SODIUM CHLORIDE 0.9% FLUSH 10 ML FLUSH IV FLUSH SCH (09:00)
[2017-04-09] MEDS: LACTATED RINGER'S 1000 ML INJ 1,000 ML IV SCH (09:04)
[2017-04-09 09:05] LABS: BLOOD GAS BASE EXCESS -4.3 mmol/L (-2-2); BLOOD GAS O2 HGB SATURATION 17 % (90-100); CORD BLOOD GAS HCO3 23 mmol/L (21-29); CORD BLOOD GAS PCO2 63 mmHG (34-78); CORD BLOOD GAS PH 7.19 (7.14-7.42); CORD BLOOD GAS PO2 13 mmHG (3.0-40.0); DRAW SITE CORD BLOOD; STAT NO
[2017-04-09] MEDS ORDERED: KETOROLAC TROMETHAMINE 30 MG/ML (IVP) VIAL ONE (09:42)
[2017-04-09] MEDS ORDERED: OXYTOCIN 30 UNITS-500ML PREMIX 500 ML ONE (09:43)
[2017-04-09] MEDS ORDERED: HYDROmorphone HCL PF 1 MG/ML VIAL IV PRN (10:20)
[2017-04-09] MEDS ORDERED: HYDROmorphone HCL PF 2 MG/ML VIAL ONE (10:40)
[2017-04-09] MEDS ORDERED: MORPHINE SULFATE 4 MG/ML INJ ONE (10:52)
[2017-04-09] MEDS ORDERED: DEXAMETHASONE SOD PHOS PF 10 MG/ML VIAL IV ONE (10:58)
[2017-04-09] MEDS ORDERED: ROPIVACAINE 0.5% PF INJ 30 ML VIAL NERV BLOCK ONE (10:58)
[2017-04-09] MEDS ORDERED: EPIDURAL-DO NOT ADMINISTER ANTICOAGULANTS PRN (12:00)
[2017-04-09] MEDS ORDERED: EPIDURAL-NO SYSTEMIC NARCOTICS PRN (12:00)
[2017-04-09] MEDS ORDERED: EPIDURAL-NALOXONE HCL 0.4 MG/ML AMP IV PRN (12:00)
[2017-04-09] MEDS ORDERED: EPIDURAL-DIPHENHYDRAMINE HCL 50 MG/ML VIAL IV PUSH PRN (12:00)
[2017-04-09] MEDS ORDERED: EPIDURAL-DIPHENHYDRAMINE HCL 50 MG CAP PO PRN (12:00)
[2017-04-09] MEDS ORDERED: SODIUM CHLORIDE 0.9% IV SCH (12:15)
[2017-04-09] MEDS ORDERED: AMPICILLIN 500 MG VIAL IV PUSH SCH (12:15)
[2017-04-09] MEDS ORDERED: GENTAMICIN IV SCH (12:15)
[2017-04-09] MEDS: CLINDAMYCIN INJ 600 MG in SODIUM CHLORIDE 0.9% INJ 100 ML IV SCH ×2 (13:00→16:15)
[2017-04-09] MEDS ORDERED: LACTATED RINGER'S 1000 ML INJ 1,000 ML IV SCH (13:42)
[2017-04-09] MEDS ORDERED: MORPHINE SULFATE 8 MG/ML INJ IM ONE (13:45)
[2017-04-09] MEDS ORDERED: HYDROmorphone HCL PF 1 MG/ML VIAL IV ONE (14:00)
--- NOTE | 2017-04-09 15:10 | HHI.OB ---
Subjective Post Operative Day: 0 Remarks 6 hours post section. Discussed pain perception with Johanna while she was in wheelchair in NICU seeing baby. She describes severe pain but appears comfortable. When asked specifically she describes a 32mg/24 oje dilaudid habit +/- 8 mg. This would be her opioid debt, required simply to avoid withdrawal. When asked about her retrovirals, she said she took her last dose the day before yesterday. She said she had planned to pick them up yesterday but when pressed (which pharmacy) she said she had not yet turned in the scripts. I suspect she has been non compliant. I recommend her Mom place a [employer] and have her detox at [place] and then go to [facility]. Objective Vitals/I&O Vital Signs Date Time Temp Pulse Resp B/P Pulse Ox O2 Delivery O2 Flow Rate FiO2 04/09/17 11:43 98.3 56 20 131/93 04/09/17 10:59 56 16 150/89 99 04/09/17 10:30 58 16 150/96 99 04/09/17 10:15 98.1 16 99 04/09/17 10:15 61 04/09/17 10:15 150/98 04/09/17 10:00 53 16 150/88 99 04/09/17 09:45 53 133/84 04/09/17 09:45 16 99 04/09/17 09:30 52 16 99 04/09/17 09:30 124/81 04/09/17 09:15 114/72 04/09/17 09:15 56 16 99 04/09/17 09:00 97.8 16 04/09/17 09:00 58 107/66 04/09/17 06:30 18 04/09/17 04:09 77 100/59 04/09/17 04:05 75 04/09/17 04:00 73 04/09/17 03:43 98.1 16 04/09/17 02:58 16 04/09/17 00:58 66 94/43 04/09/17 00:57 97.8 18 04/09/17 00:55 74 04/09/17 00:50 70 04/09/17 00:45 72 04/08/17 23:29 16 04/08/17 21:56 18 04/08/17 21:09 18 Result Diagram: 04/08/17199904/08/171999 Objective Remarks GENERAL: Well-nourished, well-developed patient. CARDIOVASCULAR: Regular rate and rhythm without murmurs, gallops, or rubs. RESPIRATORY: Breath sounds equal bilaterally. No accessory muscle use. ABDOMEN/GI: Abdomen soft, non-tender, bowel sounds present. Incision: Clean, dry and intact. Fundus: Firm, non-tender at umbilicus. GENITOURINARY: Light to moderate bleeding. EXTREMITIES: No cyanosis or edema, non-tender, without signs of DVT. Medications and IVs Current Medications Medications (Trade) Dose Ordered Sig/Roaslva Route Start Time Stop Time Status Last Admin Lactated Ringer's 1,000 ml @ 150 mls/hr Q6H40M IV 04/08/17 19:44 04/08/17 23:30 (Retrovir Inj/ D5W Inj) 250 ml @ 44.22 mls/ hr Q5H IV 04/08/17 22:00 04/09/17 04:06 Buprenorphine HCl 4 mg 4 mg Q4H PRN SL 04/09/17 00:15 04/09/17 07:30 (Lr 1000 ml Inj) 1,000 ml @ 100 mls/hr Q10H IV 04/09/17 13:42 04/10/17 09:41 (NS Flush) 2 ml BID IV FLUSH 04/09/17 09:00 (NS Flush) 2 ml UNSCH PRN IV FLUSH 04/09/17 08:45 (Mylicon Chew) 80 mg QID PRN PO 04/09/17 08:45 (Motrin) 600 mg Q6H PRN PO 04/09/17 08:45 (Toradol Inj) 30 mg Q6H PRN IM 04/09/17 08:45 04/10/17 08:44 (Percocet 5-325 Mg) 1 tab Q4H PRN PO 04/09/17 08:45 Oxycodone/ Acetaminophen 2 tab 2 tab Q4H PRN PO 04/09/17 08:45 (Cleocin Inj/NS Inj) 104 ml @ 208 mls/hr Q6H IV 04/09/17 13:00 04/09/17 19:29 (Ariana-Colace) 2 tab Q12H PRN PO 04/09/17 08:45 (Ambien) 5 mg HS PRN PO 04/09/17 21:00 (M-M-R Ii Inj) 0.5 ml ONCE ONCE SQ 04/10/17 16:00 04/10/17 16:01 (Boostrix Inj) 0.5 ml ONCE ONCE IM 04/10/17 16:00 04/10/17 16:01 (Zofran Inj) 4 mg Q6H PRN IV PUSH 04/09/17 08:45 Miscellaneous Information NO SYSTEMIC NARCOTICS TO BE GIVEN FO... UNSCH PRN .XX 04/09/17 12:00 04/10/17 11:59 (Narcan Inj) 0.4 mg UNSCH PRN IV 04/09/17 12:00 04/10/17 11:59 (Benadryl Inj) 25 mg Q6H PRN IV PUSH 04/09/17 12:00 04/10/17 11:59 (Benadryl) 50 mg Q6H PRN PO 04/09/17 12:00 04/10/17 11:59 Miscellaneous Information ALL NURSING DEPARTMENTS UNSCH PRN .XX 04/09/17 12:00 04/10/17 11:59 Assessment/Plan Assessment and Plan 2 mg dilaudid IV every 3 hours prn while awake. stop subutex venofir for anemia see if we have retrovirals here. If not call Gregory belcher awaiting viral load Leticia Maldonado MD Apr 09, 2017 15:10
[2017-04-09] MEDS ORDERED: HYDROmorphone HCL PF 2 MG/ML VIAL IV PUSH PRN (15:15)
[2017-04-09] MEDS: EMTRICITABINE/TENOFOVIR 200 MG/300 MG TAB PO SCH (16:27)
[2017-04-09] MEDS: RITONAVIR 100 MG TAB PO SCH (16:27)
[2017-04-09] MEDS: ATAZANAVIR 200 MG CAP PO SCH (16:27)
[2017-04-09] MEDS: DOCUSATE SODIUM 50 MG/SENNA 8.6 MG TAB PO PRN (18:36)
[2017-04-09] MEDS: IBUPROFEN 600 MG TAB PO PRN (18:36)
[2017-04-09] MEDS: HYDROmorphone HCL 4 MG TAB PO PRN (18:37)
[2017-04-09] MEDS ORDERED: OXYTOCIN 30 UNITS-500ML PREMIX 500 ML IV PRN (18:45)
[2017-04-09] MEDS ORDERED: LORazepam 1 MG TAB PO PRN (20:00)
[2017-04-09] MEDS ORDERED: ZOLPIDEM TARTRATE 5 MG TAB PO PRN (21:00)
[2017-04-10] MEDS: IBUPROFEN 600 MG TAB PO PRN ×4 (00:52→22:19)
[2017-04-10] MEDS: HYDROmorphone HCL 4 MG TAB PO PRN ×6 (00:55→22:20)
[2017-04-10 01:01] VITALS: BP 108/63; PULSE 61; RESP 16; TEMP 97.8; O2SAT 98
[2017-04-10 04:49] VITALS: BP 97/65; PULSE 67; RESP 17; TEMP 97.7; O2SAT 97
[2017-04-10 06:57] LABS: AUTOMATED NEUTROPHIL # 5.3 TH/MM3 (1.8-7.7); BASOPHIL % 0.1 % (0.0-2.0); EOSINOPHIL % 0.2 % (0.0-4.0); HEMATOCRIT 27.7 % (35.0-46.0); HEMO FLAGS DIFF FINAL; LYMPH % 17.4 % (9.0-44.0); LYMPHOCYTE # 1.2 TH/MM3 (1.0-4.8); MEAN CELL VOLUME 79.8 FL (80.0-100.0); MEAN CORPUSCULAR HEMOGLOBIN 25.8 PG (27.0-34.0); MEAN CORPUSCULAR HGB CONC 32.4 % (32.0-36.0); NEUT % 76.3 % (16.0-70.0); PLATELET COUNT 214 TH/MM3 (150-450); RED BLOOD COUNT 3.47 MIL/MM3 (4.00-5.30); RED CELL DISTRIBUTION WIDTH 15.7 % (11.6-17.2)
[2017-04-10 07:00] VITALS: BP 133/81; PULSE 70; RESP 18
[2017-04-10 07:05] VITALS: BP 133/81; PULSE 70; RESP 18
[2017-04-10 07:25] LABS: INDIRECT BILIRUBIN 0.6 MG/DL (0.0-0.8); TOTAL BILIRUBIN ADULT 0.9 MG/DL (0.2-1.0)
--- NOTE | 2017-04-10 09:00 | HHI.OB ---
Subjective Post Operative Day: 1 Remarks Laying in bed quietly. States it hurt too much to get up and shower. Looks extremely exhausted. Objective Vitals/I&O Vital Signs Date Time Temp Pulse Resp B/P Pulse Ox O2 Delivery O2 Flow Rate FiO2 04/10/17 07:05 70 18 04/10/17 07:05 133/81 04/10/17 07:00 133/81 04/10/17 07:00 70 18 04/10/17 04:49 97.7 67 17 97/65 97 04/10/17 01:01 97.8 61 16 108/63 98 04/09/17 20:31 97.8 04/09/17 20:31 7 17 111/71 04/09/17 16:49 97.6 61 18 113/76 04/09/17 11:43 98.3 56 20 131/93 04/09/17 10:59 56 16 150/89 99 04/09/17 10:30 58 16 150/96 99 04/09/17 10:15 98.1 16 99 04/09/17 10:15 61 04/09/17 10:15 150/98 04/09/17 10:00 53 16 150/88 99 04/09/17 09:45 53 133/84 04/09/17 09:45 16 99 04/09/17 09:30 52 16 99 04/09/17 09:30 124/81 04/09/17 09:15 114/72 04/09/17 09:15 56 16 99 04/09/17 09:00 97.8 16 04/09/17 09:00 58 107/66 Result Diagram: 04/10/1708 04/08/171999 Objective Remarks GENERAL: thin with many new and old track spangler on extremities in various stages of healing. No obvious infected sites. CARDIOVASCULAR: Regular rate and rhythm without murmurs, gallops, or rubs. RESPIRATORY: Breath sounds equal bilaterally. No accessory muscle use. ABDOMEN/GI: Abdomen soft, non-tender, bowel sounds present. bandage dry. Needs to remove in shower Fundus: Firm, non-tender at umbilicus. GENITOURINARY: Light to moderate bleeding. EXTREMITIES: No cyanosis or edema, non-tender, without signs of DVT. Medications and IVs Current Medications Medications (Trade) Dose Ordered Sig/Rosalva Route Start Time Stop Time Status Last Admin (Lr 1000 ml Inj) 1,000 ml @ 100 mls/hr Q10H IV 04/09/17 13:42 04/10/17 09:41 (NS Flush) 2 ml BID IV FLUSH 04/09/17 09:00 (NS Flush) 2 ml UNSCH PRN IV FLUSH 04/09/17 08:45 (Mylicon Chew) 80 mg QID PRN PO 04/09/17 08:45 (Motrin) 600 mg Q6H PRN PO 04/09/17 08:45 04/10/17 06:50 (Ariana-Colace) 2 tab Q12H PRN PO 04/09/17 08:45 04/09/17 18:36 (Ambien) 5 mg HS PRN PO 04/09/17 21:00 (M-M-R Ii Inj) 0.5 ml ONCE ONCE SQ 04/10/17 16:00 04/10/17 16:01 (Boostrix Inj) 0.5 ml ONCE ONCE IM 04/10/17 16:00 04/10/17 16:01 (Zofran Inj) 4 mg Q6H PRN IV PUSH 04/09/17 08:45 Miscellaneous Information NO SYSTEMIC NARCOTICS TO BE GIVEN FO... UNSCH PRN .XX 04/09/17 12:00 04/10/17 11:59 (Narcan Inj) 0.4 mg UNSCH PRN IV 04/09/17 12:00 04/10/17 11:59 (Benadryl Inj) 25 mg Q6H PRN IV PUSH 04/09/17 12:00 04/10/17 11:59 (Benadryl) 50 mg Q6H PRN PO 04/09/17 12:00 04/10/17 11:59 Miscellaneous Information ALL NURSING DEPARTMENTS UNSCH PRN .XX 04/09/17 12:00 04/10/17 11:59 (Reyataz) 400 mg DAILY PO 04/09/17 16:30 04/09/17 16:27 (Truvada 200-300 Mg) 1 tab DAILY PO 04/09/17 16:30 04/09/17 16:27 (Norvir) 100 mg DAILY PO 04/09/17 16:30 04/09/17 16:27 (Dilaudid) 4 mg Q3H PRN PO 04/09/17 17:00 04/10/17 06:50 (Ativan) 1 mg Q8H PRN PO 04/09/17 20:00 Assessment/Plan Assessment and Plan POD 1 on her retrovirals now using 4 mg dilaudid every 4 hours--will keep at this level until Wednesday POD3 and then plan for [facility] Working with Mikayla Meneses of [facility] Working with Pierre Kessler and [facility] She CANNOT be discharged to her own devices. I am convinced she is being trafficked in a drug house and there are very bad people who step in and take over as soon as she is not under direct observation. She needs to go from here to [facility] on Wednesday and undergo Detox and then go to [facility]. I will initiate contacts this weekend. 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
[2017-04-10] MEDS: ATAZANAVIR 200 MG CAP PO SCH (10:21)
[2017-04-10] MEDS: EMTRICITABINE/TENOFOVIR 200 MG/300 MG TAB PO SCH (10:21)
[2017-04-10] MEDS: RITONAVIR 100 MG TAB PO SCH (10:21)
[2017-04-10] MEDS: SERTRALINE HCL 100 MG TAB PO SCH (14:26)
[2017-04-10] MEDS: FERROUS FUMARATE 325 MG TAB (106 MG ELEMENTAL IRON) PO SCH (14:26)
[2017-04-10] MEDS ORDERED: MEASLES, MUMPS, RUBELLA VACCINE 0.5 ML VIAL SQ ONE (16:00)
[2017-04-10] MEDS ORDERED: DIPHTH/TETANUS/ACEL PERTUSSIS (BOOSTER) 0.5 ML VIAL/PFS IM ONE (16:00)
[2017-04-10 19:20] VITALS: BP 125/76; PULSE 71; RESP 16; TEMP 98.1
[2017-04-11] MEDS: HYDROmorphone HCL 4 MG TAB PO PRN ×7 (03:23→22:00)
[2017-04-11] MEDS: IBUPROFEN 600 MG TAB PO PRN ×2 (07:05→22:00)
[2017-04-11 08:00] VITALS: BP 129/68; PULSE 80; RESP 18; TEMP 98.5
[2017-04-11] MEDS: RITONAVIR 100 MG TAB PO SCH (08:16)
[2017-04-11] MEDS: EMTRICITABINE/TENOFOVIR 200 MG/300 MG TAB PO SCH (08:17)
[2017-04-11] MEDS: SERTRALINE HCL 100 MG TAB PO SCH (08:17)
[2017-04-11] MEDS: FERROUS FUMARATE 325 MG TAB (106 MG ELEMENTAL IRON) PO SCH (08:17)
[2017-04-11] MEDS: ATAZANAVIR 200 MG CAP PO SCH (08:18)
--- NOTE | 2017-04-11 10:51 | HHI.OB ---
Subjective Post Operative Day: 2 Remarks POD 2, No new c/o, is still slow to ambulate, Objective Vitals/I&O Vital Signs Date Time Temp Pulse Resp B/P Pulse Ox O2 Delivery O2 Flow Rate FiO2 04/11/17 08:00 98.5 80 18 129/68 04/10/17 19:20 98.1 71 16 125/76 Result Diagram: 04/10/1708 04/08/171999 Objective Remarks GENERAL: thin with many new and old track spangler on extremities in various stages of healing. No obvious infected sites. CARDIOVASCULAR: Regular rate and rhythm without murmurs, gallops, or rubs. RESPIRATORY: Breath sounds equal bilaterally. No accessory muscle use. ABDOMEN/GI: Abdomen soft, non-tender, bowel sounds present. bandage dry. Needs to remove in shower Fundus: Firm, non-tender at umbilicus. GENITOURINARY: Light to moderate bleeding. EXTREMITIES: No cyanosis or edema, non-tender, without signs of DVT. Medications and IVs Current Medications Medications (Trade) Dose Ordered Sig/Rosalva Route Start Time Stop Time Status Last Admin (Mylicon Chew) 80 mg QID PRN PO 04/09/17 08:45 (Motrin) 600 mg Q6H PRN PO 04/09/17 08:45 04/11/17 07:05 (Ariana-Colace) 2 tab Q12H PRN PO 04/09/17 08:45 04/09/17 18:36 (Ambien) 5 mg HS PRN PO 04/09/17 21:00 (Zofran Inj) 4 mg Q6H PRN IV PUSH 04/09/17 08:45 (Reyataz) 400 mg DAILY PO 04/09/17 16:30 04/11/17 08:18 (Truvada 200-300 Mg) 1 tab DAILY PO 04/09/17 16:30 04/11/17 08:17 (Norvir) 100 mg DAILY PO 04/09/17 16:30 04/11/17 08:16 (Dilaudid) 4 mg Q3H PRN PO 04/09/17 17:00 04/11/17 10:17 (Ativan) 1 mg Q8H PRN PO 04/09/17 20:00 (Zoloft) 100 mg DAILY PO 04/10/17 12:00 04/11/17 08:17 (Hemocyte) 325 mg DAILY PO 04/10/17 12:00 04/11/17 08:17 Assessment/Plan Assessment and Plan POD 2 on her retrovirals now; stable Reinforce shower and ambulation. CPM, Discharge Planning Per dr baires Attending Attestation seen by Lisandro Valle MD Apr 11, 2017 10:51
[2017-04-11 14:50] VITALS: BP 128/69; PULSE 86; RESP 18; TEMP 99.3
[2017-04-11 19:31] VITALS: TEMP 98.9
[2017-04-11 19:50] VITALS: BP 129/78; PULSE 94; RESP 18
[2017-04-12] MEDS: DOCUSATE SODIUM 50 MG/SENNA 8.6 MG TAB PO PRN (01:38)
[2017-04-12] MEDS: HYDROmorphone HCL 4 MG TAB PO PRN ×2 (01:38→05:17)
[2017-04-12] MEDS: IBUPROFEN 600 MG TAB PO PRN ×2 (05:18→13:22)
--- NOTE | 2017-04-12 06:09 | MP ---
cc: FAUSTINO GALO DATE OF SURGERY April 09, 2017 PREOPERATIVE DIAGNOSES A 36-1/2 week intrauterine with - Oligohydramnios. HIV diagnosed in the third trimester. Hepatitis C. Opioid addiction active. POSTOPERATIVE DIAGNOSES A 36-1/2 week intrauterine with - Oligohydramnios. HIV diagnosed in the third trimester. Hepatitis C. Opioid addiction active. Delivered. PROCEDURE Primary low transverse segment section. ANESTHESIA Spinal with Duramorph followed by TAP block for analgesia. SURGEON MD Joel ASSISTANT FINANCE MANAGER Dr. Marii Wallace PGY3. FINDINGS A living male was delivered from [facility] weighing I believe 6 pounds, 5 ounces. His Apgars I think were 7 and 8. Bleeding was average. The uterus, tubes and ovaries appeared to be unremarkable. The fascia was very thin and without much strength. She tolerated the procedure very well and went to the recovery room stable. PROCEDURE The patient was first appraised of the necessity of section given that we were unable to have a viral load on her at this time. We also suspect that she has not been compliant with her retrovirals. We went over the risks, benefits and expectations in the prep room and she was given clindamycin because of PENICILLIN ALLERGY. She was taken to the back, administered a spinal with Duramorph, placed in dorsal supine position with weight off the vena cava. She had sequential stockings on, a Meehan catheter in place and then she was prepped and draped in the usual sterile fashion. A time-out was performed with everyone in attendance. After assuring adequate analgesia, her mother was brought into the room. A Pfannenstiel incision was made with a knife and carried down through to the rectus fascia with the Bovie on cut. The rectus fascia was incised in elliptical fashion and taken off the rectus muscle. The rectus muscle had a mild diastasis and was in midline and the parietal peritoneum was entered bluntly. A bladder flap was created off the lower uterine segment. A very thin uterine segment was entered with a knife and then the incision was bluntly extended vertically. The was delivered with the findings as noted above. After 45 seconds the cord was clamped, cut and he was handed off to the neonatology team in attending. Cord gas and cord blood was obtained. Placenta was delivered manually intact with a three-vessel cord. The uterus was exteriorized and cleaned with a lap sponge to remove any residual membranes. It was closed with one chromic in a running interlocking fashion and then reinforced with a horizontal imbricating layer. It was noted to be hemostatic. It was placed back into the abdominal cavity and irrigation was performed. Confirmation of hemostasis was done and then the rectus muscle and peritoneum were closed en bloc with a running Vicryl. Then the fascia was closed with one running Vicryl, noninterlocking. The subcutaneous layer was closed with 3-0 plain to avoid a space and the skin was closed with 4-0 Monocryl on a straight needle. Estimated blood loss was average for a . Sponge, instrument and needle count were correct. She tolerated the procedure well and we will assess pain management and retroviral status postoperatively. Faustino Galo MD PPC/SSB /3:42 PM /6:02 AM
--- NOTE | 2017-04-12 08:12 | HHI.OB ---
Subjective Post Operative Day: 3 Remarks Describes pain as 8/10 but acknowledges need to wean down on dilaudid. Walking to bathroom only. Eating and sleeping well Has had a bowel movement Objective Vitals/I&O Vital Signs Date Time Temp Pulse Resp B/P Pulse Ox O2 Delivery O2 Flow Rate FiO2 04/11/17 19:50 129/78 04/11/17 19:50 94 18 04/11/17 19:31 98.9 04/11/17 14:50 86 18 128/69 04/11/17 14:50 99.3 Result Diagram: 04/10/17 0608 04/08/171999 Objective Remarks GENERAL: thin with many new and old track spangler on extremities in various stages of healing. No obvious infected sites. CARDIOVASCULAR: Regular rate and rhythm without murmurs, gallops, or rubs. RESPIRATORY: Breath sounds equal bilaterally. No accessory muscle use. ABDOMEN/GI: Abdomen soft, non-tender, bowel sounds present. incision clean and dry with steri strips abdomen scaphoid Fundus: Firm, non-tender at umbilicus. GENITOURINARY: Light to moderate bleeding. EXTREMITIES: No cyanosis or edema, non-tender, without signs of DVT. Healing track without phleblitis Medications and IVs Current Medications Medications (Trade) Dose Ordered Sig/Rosalva Route Start Time Stop Time Status Last Admin (Mylicon Chew) 80 mg QID PRN PO 04/09/17 08:45 (Motrin) 600 mg Q6H PRN PO 04/09/17 08:45 04/12/17 05:18 (Ariana-Colace) 2 tab Q12H PRN PO 04/09/17 08:45 04/12/17 01:38 (Ambien) 5 mg HS PRN PO 04/09/17 21:00 (Zofran Inj) 4 mg Q6H PRN IV PUSH 04/09/17 08:45 (Reyataz) 400 mg DAILY PO 04/09/17 16:30 04/11/17 08:18 (Truvada 200-300 Mg) 1 tab DAILY PO 04/09/17 16:30 04/11/17 08:17 (Norvir) 100 mg DAILY PO 04/09/17 16:30 04/11/17 08:16 (Dilaudid) 4 mg Q3H PRN PO 04/09/17 17:00 04/12/17 05:17 (Ativan) 1 mg Q8H PRN PO 04/09/17 20:00 (Zoloft) 100 mg DAILY PO 04/10/17 12:00 04/11/17 08:17 (Hemocyte) 325 mg DAILY PO 04/10/17 12:00 04/11/17 08:17 Assessment/Plan Assessment and Plan POD 3 on her retrovirals now; stable begin weaning dilaudid keep until set up for [place] pain manangement not adequate numbers with HIV and Hep C not back--need these to tailor treatment. Discharge Planning Per dr dequan Maldonado,Leticia Bourgeois MD Apr 12, 2017 08:12
[2017-04-12] MEDS ORDERED: cloNIDine HCL 0.1 MG TAB PO PRN (08:15)
[2017-04-12 08:40] VITALS: BP 113/69; PULSE 56; RESP 18; TEMP 97.5
[2017-04-12] MEDS: RITONAVIR 100 MG TAB PO SCH (09:52)
[2017-04-12] MEDS: SERTRALINE HCL 100 MG TAB PO SCH (09:52)
[2017-04-12] MEDS: ATAZANAVIR 200 MG CAP PO SCH (09:53)
[2017-04-12] MEDS: GABAPENTIN 300 MG CAP PO SCH ×4 (09:53→21:22)
[2017-04-12] MEDS: EMTRICITABINE/TENOFOVIR 200 MG/300 MG TAB PO SCH (09:53)
[2017-04-12] MEDS: FERROUS FUMARATE 325 MG TAB (106 MG ELEMENTAL IRON) PO SCH (09:53)
[2017-04-12] MEDS: HYDROmorphone HCL 2 MG TAB PO PRN ×4 (09:53→21:22)
[2017-04-12 19:23] VITALS: BP 106/59; PULSE 68; RESP 16; TEMP 98.1
[2017-04-13] MEDS: HYDROmorphone HCL 2 MG TAB PO PRN ×7 (01:21→22:24)
[2017-04-13] MEDS: IBUPROFEN 600 MG TAB PO PRN ×4 (01:21→22:24)
[2017-04-13] MEDS: GABAPENTIN 300 MG CAP PO SCH ×4 (08:58→21:06)
[2017-04-13] MEDS: FERROUS FUMARATE 325 MG TAB (106 MG ELEMENTAL IRON) PO SCH (08:58)
[2017-04-13] MEDS: RITONAVIR 100 MG TAB PO SCH (08:58)
[2017-04-13] MEDS: SERTRALINE HCL 100 MG TAB PO SCH (08:58)
[2017-04-13] MEDS: EMTRICITABINE/TENOFOVIR 200 MG/300 MG TAB PO SCH (08:58)
[2017-04-13] MEDS: ATAZANAVIR 200 MG CAP PO SCH (08:58)
[2017-04-13] MEDS: DOCUSATE SODIUM 50 MG/SENNA 8.6 MG TAB PO PRN ×2 (08:58→22:24)
[2017-04-13 09:00] VITALS: BP 117/69; PULSE 69; RESP 18; TEMP 98.3
[2017-04-13 09:51] LABS: HIV RNA LOG COPIES 2.74 (())
[2017-04-13 19:34] VITALS: BP 122/80; PULSE 101; RESP 18; TEMP 98.9
[2017-04-13 19:51] LABS: CD 19 PERCENT 10 % (6-29); CD3 ABSOLUTE 1131 (840-3060); CD4/CD8 RATIO 1.3 (0.86-5.00); CD8 ABSOLUTE 486 (180-1170); LYMPHOCYTES, ABSOLUTE 1288 (850-3900)
--- NOTE | 2017-04-13 21:35 | HHI.OB ---
Subjective Post Operative Day: 4 Remarks Seen at 6pm today animated and conversant and many questions about when going to [place], how long she will be there and how long before her son can join her at [facility]. She does NOT want to be discharged to her own devices, knowing she will end up back in the drug house with no electricity and using. Did not mention that I lowered her dose of dilaudid yesterday considerably ambulating better Objective Vitals/I&O Vital Signs Date Time Temp Pulse Resp B/P Pulse Ox O2 Delivery O2 Flow Rate FiO2 04/13/17 19:34 98.9 101 18 122/80 04/13/17 09:00 98.3 69 18 117/69 Result Diagram: 04/10/17 0608 Objective Remarks GENERAL: thin with many new and old track spangler on extremities in various stages of healing. No obvious infected sites. CARDIOVASCULAR: Regular rate and rhythm without murmurs, gallops, or rubs. RESPIRATORY: Breath sounds equal bilaterally. No accessory muscle use. ABDOMEN/GI: Abdomen soft, non-tender, bowel sounds present. incision clean and dry with steri strips abdomen scaphoid Fundus: Firm, non-tender at umbilicus. GENITOURINARY: Light to moderate bleeding. EXTREMITIES: No cyanosis or edema, non-tender, without signs of DVT. Healing track without phleblitis Medications and IVs Current Medications Medications (Trade) Dose Ordered Sig/Rosalva Route Start Time Stop Time Status Last Admin (Mylicon Chew) 80 mg QID PRN PO 04/09/17 08:45 (Motrin) 600 mg Q6H PRN PO 04/09/17 08:45 04/13/17 16:32 (Ariana-Colace) 2 tab Q12H PRN PO 04/09/17 08:45 04/13/17 08:58 (Ambien) 5 mg HS PRN PO 04/09/17 21:00 (Zofran Inj) 4 mg Q6H PRN IV PUSH 04/09/17 08:45 (Reyataz) 400 mg DAILY PO 04/09/17 16:30 04/13/17 08:58 (Truvada 200-300 Mg) 1 tab DAILY PO 04/09/17 16:30 04/13/17 08:58 (Norvir) 100 mg DAILY PO 04/09/17 16:30 04/13/17 08:58 (Ativan) 1 mg Q8H PRN PO 04/09/17 20:00 (Zoloft) 100 mg DAILY PO 04/10/17 12:00 04/13/17 08:58 (Hemocyte) 325 mg DAILY PO 04/10/17 12:00 04/13/17 08:58 (Dilaudid) 2 mg Q3H PRN PO 04/12/17 08:15 04/13/17 19:29 (Vistaril) 50 mg Q6H PRN PO 04/12/17 08:15 (Neurontin) 300 mg QID PO 04/12/17 09:00 04/13/17 21:06 (Catapres) 0.1 mg Q6H PRN PO 04/12/17 08:15 Assessment/Plan Assessment and Plan POD 4 on her retrovirals now; betty bear involved and have assured she will continue to receive these began weaning dilaudid yesterday with no repurcussion Ready to go to [place] early in the morning counts are back and to be compared to those obtained in January Plan is to discharge to [place] in the am and once detoxed, she will continue Act at [facility]. Discharge Planning Per dr dequan Maldonado,Leticia Bourgeois MD Apr 13, 2017 21:35
[2017-04-13] MEDS ORDERED: NEUR300C PO (21:39)
[2017-04-13 22:28] VITALS: TEMP 99.2
[2017-04-14] MEDS: HYDROmorphone HCL 2 MG TAB PO PRN ×3 (01:32→07:57)
[2017-04-14] MEDS: IBUPROFEN 600 MG TAB PO PRN ×2 (04:32→11:40)
[2017-04-14] MEDS: RITONAVIR 100 MG TAB PO SCH (07:56)
[2017-04-14] MEDS: EMTRICITABINE/TENOFOVIR 200 MG/300 MG TAB PO SCH (07:56)
[2017-04-14] MEDS: SERTRALINE HCL 100 MG TAB PO SCH (07:56)
[2017-04-14] MEDS: ATAZANAVIR 200 MG CAP PO SCH (07:56)
[2017-04-14] MEDS: GABAPENTIN 300 MG CAP PO SCH ×2 (07:56→11:39)
[2017-04-14 08:00] VITALS: BP 108/71; PULSE 70; RESP 18; TEMP 97.7
[2017-04-14] MEDS: FERROUS FUMARATE 325 MG TAB (106 MG ELEMENTAL IRON) PO SCH (08:03)
[2017-04-14] MEDS ORDERED: GABA300C5 PO (09:28)
[2017-04-15 14:09] LABS: OBMETHADONE UR NEG (NEG); PHENCYCLIDINE URINE NEG (NEG)
[2017-04-15 14:10] LABS: BATH SALTS (MDPV) UR NEG (NEG); ECSTASY (MDMA) UR NEG (NEG); HEROIN (6-ACETYLMORPHINE) UR POS (NEG); K2 SPICE UR NEG (NEG); OXYCODONE (PERCODAN) NEG (NEG)
[2017-04-15 14:11] LABS: GABAPENTIN UR NEG (NEG); HYDROMORPHONE U POS (NEG)
== END 2017-04-14 12:13 | DRG 765 ==
LOC: H2EB 19:01 → H1EA 04-09 11:28
PROVIDERS: ADMIT Obstetrics & Gynecology; ATTEND Obstetrics & Gynecology
PROC: 10D00Z1 Extraction of Products of Conception, Low, Open Approach (ICD-10-PCS; principal; 2017-04-09)
DX: O98.72 Human immunodeficiency virus [HIV] disease complicating childbirth (principal); B20 Human immunodeficiency virus [HIV] disease; F33.2 Major depressive disorder, recurrent severe without psychotic features; O41.03X0 Oligohydramnios, third trimester, not applicable or unspecified; F11.20 Opioid dependence, uncomplicated; O99.324 Drug use complicating childbirth; O98.42 Viral hepatitis complicating childbirth; B19.20 Unspecified viral hepatitis C without hepatic coma; O43.893 Other placental disorders, third trimester; O99.02 Anemia complicating childbirth; O99.344 Other mental disorders complicating childbirth; F14.10 Cocaine abuse, uncomplicated; F43.21 Adjustment disorder with depressed mood; Z37.0 Single live birth; Z3A.36 36 weeks gestation of pregnancy; Z72.0 Tobacco use; Z88.0 Allergy status to penicillin; Z22.330 Carrier of Group B streptococcus; Z91.14 Patient's other noncompliance with medication regimen
CPT/HCPCS: 80053; 80074; 80076; 80307; 81001; 82805; 85025; 86355; 86357; 86359; 86360; 86777; 86778; 86850; 86900; 86901; 87070; 87086; 87205; 87536; 88307; 90715; G0481; J0131; J1100; J1170; J1885; J2270; J2274; J2405; J2590; J2795; J3010; J3485; J7060; J7120

== ENCOUNTER 2017-11-18 10:57 | Emergency (ER) | payer MEDICAID ==
[~2017-11-18 10:57] MED LIST changes: -EMTR1TAB PO; +GABA300C5 PO; -MACR100C2 PO; -RALT400 PO; +TRUV200300 PO
[2017-11-18] MEDS ORDERED: IOHEXOL 350 MG/ML 10 ML VIAL (for RAD DIAG) IVCONTRAST ONE (10:58)
[2017-11-18 10:59] VITALS: BP 120/73; PULSE 97; RESP 18; TEMP 98.1; O2SAT 100
--- NOTE | 2017-11-18 11:12 | PD ---
HPI Chief Complaint: Abdominal Pain Time Seen by Provider: 11:10 Travel History International Travel<30 days: No Contact w/Intl Traveler<30days: No Traveled to known affect area: No History of Present Illness HPI 27-year-old female presents to the emergency Department with complaint of right upper quadrant abdominal pain times one week. Denies fevers, vomiting, diarrhea , dysuria. Denies history of abdominal surgeries. Pain is worse with coughing and laughing. No known relieving factors. Has not taken any medications or treatments to alleviate her symptoms. Rates pain 6/10. Describes it as a stabbing sensation. Symptoms are in no relation to food or bowel movements. Pain is constant. Last menstrual period was around September 2017. An is alcohol use. History of IV drug use and last used in March. Allergies to penicillin. History of HIV and HEP C and is on HEART therapy. History of depression and takes Wellbutrin. Primary care provider is Dr. Starr. He has no other medical complaints. No other modifying factors or associated signs and symptoms. PFSH Past Medical History Autoimmune Disease: No Cardiovascular Problems: No Gastrointestinal Disorders: No Genitourinary: No Musculoskeletal: No Neurologic: No Psychiatric: No Reproductive: No Respiratory: Yes ?: Unknown LMP: 10/18/17 Social History Alcohol Use: No Tobacco Use: Yes Substance Use: No (CRACK AND OXYCODONE CLEAN 3 MONTHS) Allergies-Medications (Allergen,Severity, Reaction): Coded Allergies: penicillin G (Unverified Allergy, Severe, 06/08/17) Reported Meds & Prescriptions Reported Meds & Active Scripts Active Gabapentin 300 Mg Cap 300 Mg PO TID Norvir (Ritonavir) 100 Mg Tab 100 Mg PO DAILY Reyataz (Atazanavir) 200 Mg Cap 400 Mg PO DAILY Truvada (Emtricitabine-Tenofovir Disoproxil Fumarate) 200-300 Mg Tab 1 Tab PO DAILY Catapres (Clonidine) 0.1 Mg Tab 0.1 Mg PO Q8HR PRN Buprenorphine (Buprenorphine HCl) 8 Mg Subl 4 Mg SL TID@,15,21 Review of Systems Except as stated in HPI: all other systems reviewed are Neg Physical Exam Narrative GENERAL: Well-nourished, well-developed female patient, in no acute distress; afebrile SKIN: Warm and dry. HEAD: Atraumatic. Normocephalic. EYES: Pupils equal and round. No scleral icterus. No injection or drainage. ENT: Mucosa pink and moist. Airway patent. NECK: Trachea midline. CARDIOVASCULAR: Regular rate and rhythm. No murmur appreciated. RESPIRATORY: No accessory muscle use. Clear to auscultation. Breath sounds equal bilaterally. GASTROINTESTINAL: Abdomen soft, tenderness on palpation to right upper quadrant and lower quadrant, nondistended. Hepatic and splenic margins not palpable. Bowel sounds are active 4 quadrants. Nonrigid. No rebound tenderness. No guarding. BACK: No CVA tenderness. MUSCULOSKELETAL: No obvious deformities. No clubbing. No cyanosis. No edema. NEUROLOGICAL: Awake and alert. Oriented 3. No obvious cranial nerve deficits. Motor grossly within normal limits. Normal speech. PSYCHIATRIC: Appropriate mood and affect; insight and judgment normal. Data Data Last Documented VS Vital Signs Date Time Temp Pulse Resp B/P (MAP) Pulse Ox O2 Delivery O2 Flow Rate FiO2 11/18/17 12:10 98 11/18/17 10:59 98.1 97 18 Orders Orders Complete Blood Count With Diff (11/18/17 11:19) Comprehensive Metabolic Panel (11/18/17 11:19) Lipase (11/18/17 11:19) Urinalysis - C+S If Indicated (11/18/17 11:19) Ct Abd/Pel W Iv Contrast(Rout) (11/18/17 11:19) Iv Access Insert/Monitor (11/18/17 11:19) Ecg Monitoring (11/18/17 11:19) Oximetry (11/18/17 11:19) Sodium Chlor 0.9% 1000 Ml Inj (Ns 1000 M (11/18/17 11:19) Sodium Chloride 0.9% Flush (Ns Flush) (11/18/17 11:30) Ketorolac Inj (Toradol Inj) (11/18/17 11:30) Ed Urine Pregnancytest Poc (11/18/17 11:19) Urine Culture (11/18/17 12:07) Gc And Chlamydia Pcr (11/18/17 13:11) Wet Prep Profile (11/18/17 13:11) Iohexol 350 Inj (Omnipaque 350 Inj) (11/18/17 10:58) Labs Laboratory Tests Test 11/18/17 11:11/18/17 12:07 White Blood Count 4.3 TH/MM3 Red Blood Count 4.64 MIL/MM3 Hemoglobin 13.0 GM/DL Hematocrit 38.7 % Mean Corpuscular Volume 83.3 FL Mean Corpuscular Hemoglobin 28.1 PG Mean Corpuscular Hemoglobin Concent 33.7 % Red Cell Distribution Width 14.7 % Platelet Count 200 TH/MM3 Mean Platelet Volume 8.2 FL Neutrophils (%) (Auto) 48.5 % Lymphocytes (%) (Auto) 39.5 % Monocytes (%) (Auto) 9.1 % Eosinophils (%) (Auto) 2.0 % Basophils (%) (Auto) 0.9 % Neutrophils # (Auto) 2.1 TH/MM3 Lymphocytes # (Auto) 1.7 TH/MM3 Monocytes # (Auto) 0.4 TH/MM3 Eosinophils # (Auto) 0.1 TH/MM3 Basophils # (Auto) 0.0 TH/MM3 CBC Comment DIFF FINAL Differential Comment Blood Urea Nitrogen 13 MG/DL Creatinine 0.81 MG/DL Random Glucose 102 MG/DL Total Protein 8.0 GM/DL Albumin 3.6 GM/DL Calcium Level 8.6 MG/DL Alkaline Phosphatase 87 U/L Aspartate Amino Transf (AST/SGOT) 15 U/L Alanine Aminotransferase (ALT/SGPT) 28 U/L Total Bilirubin 0.4 MG/DL Sodium Level 139 MEQ/L Potassium Level 3.6 MEQ/L Chloride Level 109 MEQ/L Carbon Dioxide Level 23.0 MEQ/L Anion Gap 7 MEQ/L Estimat Glomerular Filtration Rate 85 ML/MIN Lipase 151 U/L Urine Color YELLOW Urine Turbidity HAZY Urine pH 6.0 Urine Specific [place] 1.012 Urine Protein NEG mg/dL Urine Glucose (UA) NEG mg/dL Urine Ketones NEG mg/dL Urine Occult Blood NEG Urine Nitrite NEG Urine Bilirubin NEG Urine Urobilinogen LESS THAN 2.0 MG/DL Urine Leukocyte Esterase NEG Urine RBC 2 /hpf Urine WBC 2 /hpf Urine Squamous Epithelial Cells 12 /hpf Urine Bacteria MOD /hpf Urine Mucus FEW /lpf Microscopic Urinalysis Comment CULTURE INDICATED MDM Medical Decision Making Medical Screen Exam Complete: Yes Emergency Medical Condition: Yes Medical Record Reviewed: Yes Differential Diagnosis Cholelithiasis, cholecystitis, appendicitis, unspecific abdominal pain Narrative Course 27-year-old female with right upper and lower quadrant abdominal pain. CBC, CMP , lipase, urinalysis, UPT, CT abdomen/pelvis ordered. Normal saline bolus, Toradol ordered. 1219: UPT negative. CBC, CMP, lipase unremarkable. 1313: Urinalysis with moderately high bacteria and reflexed to urine culture. Dr. Romero recommended doing a pelvic exam and testing for wet prep, chlamydia, gonorrhea. I discussed this with the patient and she agreed. 1348: CT pending. Pelvic exam not performed. AMA: The risks of leaving against medical advice without further evaluation treatment were discussed with the patient. These risks include cardiac dysfunction, cardiac dysrhythmia, possible heart attack, possible stroke or . The patient indicated understanding of these risks and appeared to have the capacity to make this decision. Diagnosis Primary Impression: Left against medical advice Disposition: 07 AGAINST MEDICAL ADVICE Zakia Carrasco Nov 18, 2017 11:12
[2017-11-18] MEDS ORDERED: SODIUM CHLOR 0.9% 1000 ML INJ 1,000 ML IV SCH (11:19)
[2017-11-18] MEDS ORDERED: KETOROLAC TROMETHAMINE 30 MG/ML (IVP) VIAL IVP ONE (11:30)
[2017-11-18] MEDS ORDERED: SODIUM CHLORIDE 0.9% FLUSH 10 ML FLUSH IV FLUSH PRN (11:30)
[2017-11-18 11:33] LABS: AUTOMATED NEUTROPHIL # 2.1 TH/MM3 (1.8-7.7); BASOPHIL % 0.9 % (0.0-2.0); EOSINOPHIL # 0.1 TH/MM3 (0-0.4); HEMATOCRIT 38.7 % (35.0-46.0); LYMPH % 39.5 % (9.0-44.0); LYMPHOCYTE # 1.7 TH/MM3 (1.0-4.8); MEAN CELL VOLUME 83.3 FL (80.0-100.0); MEAN CORPUSCULAR HEMOGLOBIN 28.1 PG (27.0-34.0); MEAN CORPUSCULAR HGB CONC 33.7 % (32.0-36.0); MEAN PLATELET VOLUME 8.2 FL (7.0-11.0); MONO % 9.1 % (0.0-8.0); MONOCYTE # 0.4 TH/MM3 (0-0.9); NEUT % 48.5 % (16.0-70.0); PLATELET COUNT 200 TH/MM3 (150-450); RED BLOOD COUNT 4.64 MIL/MM3 (4.00-5.30); RED CELL DISTRIBUTION WIDTH 14.7 % (11.6-17.2); WHITE BLOOD COUNT 4.3 TH/MM3 (4.0-11.0)
[2017-11-18 11:54] LABS: ALBUMIN 3.6 GM/DL (3.4-5.0); ALT (GPT) 28 U/L (10-53); AST (GOT) 15 U/L (15-37); BLOOD UREA NITROGEN 13 MG/DL (7-18); CALCIUM 8.6 MG/DL (8.5-10.1); CHLORIDE 109 MEQ/L (98-107); CREATININE 0.81 MG/DL (0.50-1.00); GLOMERULAR FILTRATION RATE 85 ML/MIN (>89); GLUCOSE,RANDOM 102 MG/DL (74-106); LIPASE 151 U/L (73-393); SODIUM (NA) 139 MEQ/L (136-145)
[2017-11-18 11:57] LABS: ALKALINE PHOSPHATASE 87 U/L (45-117); TOTAL BILIRUBIN ADULT 0.4 MG/DL (0.2-1.0)
[2017-11-18 12:10] VITALS: O2SAT 98
[2017-11-18 12:21] LABS: BACTERIA, URINE MOD /hpf; BILIRUBIN, URINE NEG (NEG); BLOOD, URINE NEG (NEG); GLUCOSE,URINE NEG (NEG); KETONE, URINE NEG (NEG); MUCUS URINE FEW /lpf (OCC); NITRITE,URINE NEG (NEG); SQUAMOUS EPITHELIAL CELL URINE 12 /hpf (0-5); URINE COLOR YELLOW (YELLW/STRAW); URINE LEUKOCYTE ESTERASE NEG (NEG)
--- NOTE | 2017-11-18 13:49 | RADRPT ---
EXAM DATE/TIME: 11/18/2017 13:09 [facility] COMPARISON: No previous studies available for comparison. INDICATIONS : Diffuse upper abdomen pain for one weeks. IV CONTRAST: 95 cc Omnipaque 350 (iohexol) IV ORAL CONTRAST: No oral contrast ingested. RADIATION DOSE: 9.09 CTDIvol (mGy) MEDICAL HISTORY : HIV. SURGICAL HISTORY : Femur sx. ENCOUNTER: Initial ACUITY: 1 week PAIN SCALE: 7/10 LOCATION: Right upper quadrant TECHNIQUE: Volumetric scanning of the abdomen and pelvis was performed. Using automated exposure control and ad justment of the mA and/or kV according to patient size, radiation dose was kept as low as reasonably achievable to obtain optimal diagnostic quality images. DICOM format image data is available electro nically for review and comparison. FINDINGS: LOWER LUNGS: The visualized lower lungs are clear. LIVER: Homogeneous density without lesion. There is no dilation of the biliary tree. No calcified gallston es. SPLEEN: Normal size without lesion. PANCREAS: Within normal limits. KIDNEYS: Normal in size and shape. There is no mass, stone or hydronephrosis. ADRENAL GLANDS: Within normal limits. VASCULAR: There is no aortic aneurysm. BOWEL/MESENTERY: Prominent amount stool in the rectum. No bowel dilatation. No free air or free fluid. No focal inflam matory changes. Appendix within normal limits. ABDOMINAL WALL: Within normal limits. RETROPERITONEUM: There is no lymphadenopathy. BLADDER: No wall thickening or mass. REPRODUCTIVE: Within normal limits. INGUINAL: There is no lymphadenopathy or hernia. MUSCULOSKELETAL: Within normal limits for patient age. CONCLUSION: No acute findings in the abdomen and pelvis. Rios Soria MD on November 18, 2017 at 13:43 Board Certified Radiologist. This report was verified electronically.
[2017-11-18 13:55] VITALS: BP 105/70; PULSE 70; RESP 18; O2SAT 97
== END 2017-11-18 13:57 | disposition left against medical advice (07) ==
LOC: NEPD 10:57
DX: R10.11 Right upper quadrant pain (principal); B19.20 Unspecified viral hepatitis C without hepatic coma; F32.9 Major depressive disorder, single episode, unspecified; Z21 Asymptomatic human immunodeficiency virus [HIV] infection status; Z72.0 Tobacco use; Z88.0 Allergy status to penicillin; Z79.899 Other long term (current) drug therapy
CPT/HCPCS: 74177; 80053; 81001; 83690; 84703; 85025; 87086; 87491; 87591; 96374; 99285; J1885; J7030; Q9967